=== PATIENT | female | born 1945 | race Caucasian/White ===

== ENCOUNTER 2018-02-07 19:52 | Observation (INO) | payer MEDICARE ==
[2018-02-07] MEDS ORDERED: NITROGLYCERIN OINT 1 INCH/GM PACKET TOPICAL STA (20:26)
[2018-02-07] MEDS ORDERED: ASPIRIN 81 MG PO STA (20:26)
--- NOTE | 2018-02-07 20:29 | ED ---
General Adult HPI - General Chief complaint: Chest Pain Stated complaint: Chest tightness Time Seen by Provider: 02/07/18 20:01 Source: patient, RN notes reviewed Mode of arrival: EMS Limitations: no limitations - History of Present Illness Initial comments: Patient is a pleasant 72-year-old female presenting to the emergency Department with complaints of chest tightness. Onset of symptoms was around 5:30 PM. Discomfort has improved and is now near resolved. No history of similar symptoms previously. Discomfort did radiate towards the left shoulder. Patient has been having some chronic problems with the right shoulder for weeks now. Patient did feel a little bit short of breath earlier. No nausea vomiting. No diaphoresis. - Related Data Home Medications Medication Instructions Recorded Confirmed Glucosamine-Chondr 500-400Mg 1 tab PO DAILY 07/03/14 02/07/18 Pravastatin Sodium [Pravachol] 40 mg PO HS 07/03/14 02/07/18 Gabapentin [Neurontin] 300 mg PO TID 02/07/18 02/07/18 Losartan Potassium 100 mg PO DAILY 02/07/18 02/07/18 Multivitamins, Thera [Multivitamin 1 tab PO DAILY 02/07/18 02/07/18 (formulary)] Oxybutynin Chloride [Ditropan] 5 mg PO BID 02/07/18 02/07/18 Ranitidine HCl [Zantac] 150 mg PO BID 02/07/18 02/07/18 Vitamin D3(Unknown) 1 tab PO DAILY 02/07/18 02/07/18 Allergies Allergy/AdvReac Type Severity Reaction Status Date / Time Iodinated Contrast- Oral and Allergy Anaphylaxis Verified 02/07/18 20:05 IV Dye [Iodinated Contrast Media - IV Dye] Sulfa (Sulfonamide Allergy Swelling Verified 02/07/18 20:05 Antibiotics) sulfamethoxazole Allergy Swelling Verified 02/07/18 20:05 [From Bactrim] trimethoprim [From Bactrim] Allergy Swelling Verified 02/07/18 20:05 prednisone AdvReac Itching Verified 02/07/18 20:05 Review of Systems ROS Statement: Those systems with pertinent positive or pertinent negative responses have been documented in the HPI. ROS Other: All systems not noted in ROS Statement are negative. Constitutional: Denies: fever Eyes: Denies: eye pain ENT: Denies: ear pain Respiratory: Denies: cough Cardiovascular: Reports: as per HPI, chest pain Endocrine: Denies: fatigue Gastrointestinal: Denies: abdominal pain Genitourinary: Denies: dysuria Musculoskeletal: Denies: back pain Skin: Denies: rash Neurological: Denies: weakness Past Medical History Past Medical History: GERD/Reflux, Hyperlipidemia, Hypertension, Osteoarthritis (OA) Additional Past Medical History / Comment(s): 07/07/14 Pt admitted to floor s/p total R hip. Other HX: Urinary stress Incontinence, osteoporosis History of Any Multi-Drug Resistant Organisms: None Reported Past Surgical History: Appendectomy, Section, Joint Replacement, Orthopedic Surgery, Tonsillectomy Additional Past Surgical History / Comment(s): 07/07/14 Total R hip arthroplasty. Bilateral cataracts, carpal tunnel release bilaterally Past Anesthesia/Blood Transfusion Reactions: No Reported Reaction, Postoperative Nausea & Vomiting (PONV) Past Psychological History: No Psychological Hx Reported Smoking Status: Never smoker Past Alcohol Use History: None Reported Past Drug Use History: None Reported - Past Family History Father Additional Family Medical History / Comment(s): Father had some sort of blood disorder. 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 OR 160. QRS 84. QT 356. QTc 402. Normal axis. Normal QRS. No acute ST change. Medical Decision Making - Medical Decision Making Patient reevaluated and resting comfortably in bed. Patient updated on results and plan. Case was discussed in detail with Dr. allen, who will admit for Dr. nguyễn - Lab Data Result diagrams: 02/07/18 20:17 02/07/18 20:17 Lab Results 02/07/18 02/07/18 02/07/18 Range/Units 20:17 20:17 20:17 WBC 7.2 (3.8-10.6) k/uL RBC 4.31 (3.80-5.40) m/uL Hgb 11.9 (11.4-16.0) gm/dL Hct 37.9 (34.0-46.0) % MCV 88.0 (80.0-100.0) fL MCH 27.7 (25.0-35.0) pg MCHC 31.5 (31.0-37.0) g/dL RDW 13.9 (11.5-15.5) % Plt Count 348 (150-450) k/uL Neutrophils % 63 % Lymphocytes % 27 % Monocytes % 5 % Eosinophils % 2 % Basophils % 0 % Neutrophils # 4.5 (1.3-7.7) k/uL Lymphocytes # 1.9 (1.0-4.8) k/uL Monocytes # 0.4 (0-1.0) k/uL Eosinophils # 0.2 (0-0.7) k/uL Basophils # 0.0 (0-0.2) k/uL PT (9.0-12.0) sec INR (<1.2) APTT (22.0-30.0) sec D-Dimer (<0.60) mg/L FEU Sodium 140 (137-145) mmol/L Potassium 4.2 (3.5-5.1) mmol/L Chloride 103 (98-107) mmol/L Carbon Dioxide 29 (22-30) mmol/L Anion Gap 8 mmol/L BUN 21 H (7-17) mg/dL Creatinine 0.63 (0.52-1.04) mg/dL Est GFR (CKD-EPI)AfAm >90 (>60 ml/min/1.73 sqM) Est GFR (CKD-EPI)NonAf 89 (>60 ml/min/1.73 sqM) Glucose 113 H (74-99) mg/dL Calcium 9.9 (8.4-10.2) mg/dL Magnesium 2.1 (1.6-2.3) mg/dL Total Bilirubin 0.4 (0.2-1.3) mg/dL AST 30 (14-36) U/L ALT 46 (9-52) U/L Alkaline Phosphatase 62 (38-126) U/L Total Creatine Kinase 29 L (30-135) U/L CK-MB (CK-2) 0.7 (0.0-2.4) ng/mL CK-MB (CK-2) Rel Index 2.4 Troponin I <0.012 (0.000-0.034) ng/mL Total Protein 6.6 (6.3-8.2) g/dL Albumin 4.0 (3.5-5.0) g/dL 02/07/18 Range/Units 20:17 WBC (3.8-10.6) k/uL RBC (3.80-5.40) m/uL Hgb (11.4-16.0) gm/dL Hct (34.0-46.0) % MCV (80.0-100.0) fL MCH (25.0-35.0) pg MCHC (31.0-37.0) g/dL RDW (11.5-15.5) % Plt Count (150-450) k/uL Neutrophils % % Lymphocytes % % Monocytes % % Eosinophils % % Basophils % % Neutrophils # (1.3-7.7) k/uL Lymphocytes # (1.0-4.8) k/uL Monocytes # (0-1.0) k/uL Eosinophils # (0-0.7) k/uL Basophils # (0-0.2) k/uL PT 9.4 (9.0-12.0) sec INR 0.9 (<1.2) APTT 19.1 L (22.0-30.0) sec D-Dimer 0.61 H (<0.60) mg/L FEU Sodium (137-145) mmol/L Potassium (3.5-5.1) mmol/L Chloride (98-107) mmol/L Carbon Dioxide (22-30) mmol/L Anion Gap mmol/L BUN (7-17) mg/dL Creatinine (0.52-1.04) mg/dL Est GFR (CKD-EPI)AfAm (>60 ml/min/1.73 sqM) Est GFR (CKD-EPI)NonAf (>60 ml/min/1.73 sqM) Glucose (74-99) mg/dL Calcium (8.4-10.2) mg/dL Magnesium (1.6-2.3) mg/dL Total Bilirubin (0.2-1.3) mg/dL AST (14-36) U/L ALT (9-52) U/L Alkaline Phosphatase (38-126) U/L Total Creatine Kinase (30-135) U/L CK-MB (CK-2) (0.0-2.4) ng/mL CK-MB (CK-2) Rel Index Troponin I (0.000-0.034) ng/mL Total Protein (6.3-8.2) g/dL Albumin (3.5-5.0) g/dL - Radiology Data Radiology results: report reviewed (Computed tomography scan of the chest negative for pulmonary embolism.), image reviewed (Two-view chest x-ray shows no acute process.) Disposition Clinical Impression: Chest pain Disposition: ADMITTED IP TO THIS HOSP Is patient prescribed a controlled substance at d/c from ED?: No Referrals: Yovani Leyva MD [Primary Care Provider] - 1-2 days Decision Time: 23:39
[2018-02-07 20:39] LABS: Basophils % (A) 0 %; Eosinophils # (A) 0.2 k/uL (0-0.7); Eosinophils % (A) 2 %; HCT 37.9 % (34.0-46.0); HGB 11.9 gm/dL (11.4-16.0); Lymphocytes # (A) 1.9 k/uL (1.0-4.8); Lymphocytes % (A) 27 %; MCH 27.7 pg (25.0-35.0); MCHC 31.5 g/dL (31.0-37.0); Mean Platelet Volume 6.8; Monocytes # (A) 0.4 k/uL (0-1.0); Monocytes % (A) 5 %; Neutrophils # (A) 4.5 k/uL (1.3-7.7); Neutrophils % (A) 63 %; Platelet Count 348 k/uL (150-450); RBC 4.31 m/uL (3.80-5.40); RDW 13.9 % (11.5-15.5); WBC 7.2 k/uL (3.8-10.6)
--- NOTE | 2018-02-07 20:53 | XR ---
EXAMINATION TYPE: XR chest 2V DATE OF EXAM: 02/07/2018 COMPARISON: 07/08/2014 HISTORY: Chest pressure TECHNIQUE: Frontal and lateral views of the chest are obtained. FINDINGS: Heart is enlarged. There is no heart failure. Lungs are clear of consolidation. There is n o pleural effusion. There are chest leads. There is spurring in the thoracic spine. IMPRESSION: No active cardiopulmonary disease. Heart appears increased slightly compared to old exam .
[2018-02-07 20:58] LABS: ALT 46 U/L (9-52); AST 30 U/L (14-36); Alkaline Phosphatase 62 U/L (38-126); Anion Gap 8 mmol/L; Blood Urea Nitrogen 21 mg/dL (7-17); Calcium 9.9 mg/dL (8.4-10.2); Carbon Dioxide 29 mmol/L (22-30); Chloride 103 mmol/L (98-107); Glucose 113 mg/dL (74-99); Magnesium 2.1 mg/dL (1.6-2.3); Potassium 4.2 mmol/L (3.5-5.1); Sodium 140 mmol/L (137-145); Total Bilirubin 0.4 mg/dL (0.2-1.3); Total Protein 6.6 g/dL (6.3-8.2)
[2018-02-07 21:00] LABS: INR 0.9 (<1.2); Prothrombin Time 9.4 sec (9.0-12.0)
[2018-02-07 21:11] LABS: Creatine Kinase 29 U/L (30-135)
[2018-02-07 21:15] LABS: D-Dimer 0.61 mg/L FEU (<0.60); Partial Thromboplastin Time 19.1 sec (22.0-30.0)
[2018-02-07] MEDS ORDERED: diphenhydrAMINE 50 MG/ML 1 ML VIAL IVP STA (21:18)
[2018-02-07] MEDS ORDERED: FAMOTIDINE 20 MG/2 ML VIAL IV STA (21:18)
[2018-02-07] MEDS ORDERED: methylPREDNISolone SOD SUCCI 125 MG/2 ML VIAL IV STA (21:18)
[2018-02-07 21:24] LABS: Creatine Kinase MB 0.7 ng/mL (0.0-2.4); Troponin I <0.012 ng/mL (0.000-0.034)
--- NOTE | 2018-02-07 22:30 | CT ---
EXAMINATION TYPE: CT angio chest DATE OF EXAM: 02/07/2018 10:21 PM COMPARISON: None HISTORY: Chest pain and shortness of breath. CT DLP: 461.3 mGycm Automated exposure control for dose reduction was used. CONTRAST: CTA scan of the thorax is performed with IV Contrast, patient injected with 76ml mL of Isovue 370, pu lmonary embolism protocol. There are 3-D post processed images.. FINDINGS: The lungs are clear of consolidation. There is no evidence of a pulmonary mass. There is no pleural e ffusion. There is no pericardial effusion. There are no hilar masses. There is no mediastinal adenopathy. Thoracic aorta appears normal. There i s normal contrast opacification of the pulmonary arteries. I see no filling defect. There is no evide nce of aortic aneurysm or dissection. There is some spurring in the thoracic spine. I see no bony destructive process. IMPRESSION: NEGATIVE CT ANGIOGRAM OF THE CHEST. NO EVIDENCE OF PULMONARY EMBOLISM.
[2018-02-07] MEDS ORDERED: NITROGLYCERIN SL TABS 0.4 MG TAB SUBLINGUAL PRN (23:39)
[2018-02-08 01:09] VITALS: BMI 38.2
[2018-02-08] MEDS: NITROGLYCERIN OINT 1 INCH/GM PACKET TOPICAL SCH ×4 (01:25→15:39)
[2018-02-08 02:39] LABS: Creatine Kinase 26 U/L (30-135)
[2018-02-08 02:40] LABS: Cholesterol 197 mg/dL (<200); HDL Cholesterol 100 mg/dL (40-60); LDL Cholesterol,Calculated 86 mg/dL (0-99); Triglycerides 54 mg/dL (<150)
[2018-02-08 02:51] LABS: Creatine Kinase MB 0.5 ng/mL (0.0-2.4); Troponin I <0.012 ng/mL (0.000-0.034)
[2018-02-08 05:53] LABS: Glucose,Whole Blood 187 mg/dL (75-99)
[2018-02-08 08:29] VITALS: RESP 16
[2018-02-08] MEDS ORDERED: ASPIRIN 325 MG TAB PO SCH (09:00)
[2018-02-08 09:20] LABS: Creatine Kinase 23 U/L (30-135)
[2018-02-08 09:32] LABS: Creatine Kinase MB 0.6 ng/mL (0.0-2.4); Troponin I <0.012 ng/mL (0.000-0.034)
[2018-02-08] MEDS ORDERED: LOSARTAN 50 MG TAB PO SCH (11:30)
[2018-02-08] MEDS ORDERED: OXYBUTYNIN CHLORIDE 5 MG TAB PO SCH (11:30)
[2018-02-08] MEDS ORDERED: FAMOTIDINE 20 MG TAB PO SCH (11:30)
[2018-02-08] MEDS ORDERED: METOPROLOL TARTRATE 25 MG TAB PO SCH (11:45)
[2018-02-08 11:50] VITALS: TEMP 97.7
[2018-02-08] MEDS: GABAPENTIN 300 MG CAP PO SCH ×2 (11:51→15:39)
[2018-02-08] MEDS ORDERED: MULTIVITAMINS, THERA 1 EACH TAB PO SCH (12:00)
[2018-02-08] MEDS ORDERED: CHOLECALCIFEROL 1,000 UNIT TAB PO SCH (12:00)
--- NOTE | 2018-02-08 14:48 | CONS ---
CONSULTATION This is a 72-year-old lady with a known history of hypertension and hypercholesterolemia. She has been admitted to the hospital with an episode of right shoulder and arm pain followed by a left shoulder and arm pain and then had some midsternal chest discomfort. The quality of her chest pain and more importantly shoulder pain seems musculoskeletal. She was using a massager and she used the massager on her right shoulder. This was a manual massager with 3 wooden areas and she applied this on to her forearm and shoulder and she has developed a bruise over the forearm. Then she had pain in the shoulder and then had a brief episode of chest discomfort. The quality of the pain is atypical. Patient is reluctant to have any further testing performed. Her troponins are normal. She is resting comfortably without symptoms. Her blood pressure control is optimal. She sees Dr. Leyva and her blood pressure control has been good. At the time of my evaluation, she is asymptomatic and wishes to go home. PAST MEDICAL HISTORY: 1. Hypertension. 2. Hyperlipidemia. 3. Obesity. 4. A negative stress test more than 2-1/2 years ago. 5. No evidence of any documented prior myocardial infarction or CVA. MEDICATIONS: At home include Zantac, Pravachol 40 mg daily, Ditropan, losartan 100 mg daily, gabapentin. ALLERGIES: She is ALLERGIC TO IODINE DYE, SULFA AND BACTRIM. The patient had a CT angiography performed yesterday and this was normal without any evidence of pulmonary embolism. Troponin levels are all unremarkable. EKG revealed a sinus mechanism without any significant changes. There was poor R-wave progression noted. EXAMINATION: Blood pressure is 128/70, pulse rate is about 80 per minute and regular. HEENT: Unremarkable. Fundus was not examined by me. Neck is supple. There is no JVD. I do not hear a carotid bruit. Heart exam reveals S1, S2 heard normally without any rub, murmur or gallop. Lungs are clear. Abdomen is soft, nontender. Lower extremities reveal normal pulses. No edema. Central nervous system is normal. EKG revealed sinus mechanism, no acute changes. IMPRESSION: 1. Atypical shoulder and chest discomfort. 2. Hypertension. 3. Hyperlipidemia. 4. Obesity. RECOMMENDATION: I am recommending that the patient can be discharged and should have a stress test as an outpatient. Advised to be on Lopressor 25 mg daily, decrease losartan to 50 mg daily and continue her Pravachol. She can be discharged and will have a stress test as an outpatient. Thank you very much for the consult. COSME / TEODORO: [id number] /
[2018-02-08 15:50] VITALS: BP 125/64; PULSE 68
--- NOTE | 2018-02-08 16:18 | HP ---
HISTORY AND PHYSICAL DATE OF ADMISSION: 02/07/18. DATE OF SERVICE: 02/08/18. PRESENTING COMPLAINT: Chest tightness. HISTORY OF PRESENTING COMPLAINT: This is a very pleasant 72-year-old patient from [facility], follows with Dr. Leyva. Chronic stable medical conditions include GERD, hypertension, hyperlipidemia, osteoarthritis, urine incontinence. The patient has been having right shoulder pain for about a week when she moves her arm. Yesterday developed chest tightness with pain going to her left shoulder. Also became short of breath, dizzy, smoking break out in a sweat. Symptoms lasted for good over half an hour. No obvious relation to activity. Hence patient decided to present to the ER. The patient admitted for unstable angina. Given nitroglycerin paste and aspirin in the ER and admitted for further workup. Denies any prior cardiac history. The patient did have a stress test 2-1/2 years ago that was negative. Patient otherwise is rather active. REVIEW OF SYSTEMS: CONSTITUTIONAL: None. HEENT: None. RESPIRATORY: As above. CARDIOVASCULAR: As above. GASTROINTESTINAL: Heartburn. GENITOURINARY: Urine incontinence. MUSCULOSKELETAL: Pain in all the joints. DERMATOLOGICAL, HEMATOLOGIC, LYMPHATICS: None. PSYCHIATRY: None. NEUROLOGICAL: None. PAST MEDICAL HISTORY: GERD, hypertension, hyperlipidemia, osteoarthritis, urine incontinence. PAST SURGICAL HISTORY: Appendectomy , joint replacement, tonsillectomy, right total hip arthroplasty, bilateral cataract, carpal tunnel release bilaterally. SOCIAL HISTORY: Patient lives at home with daughter and son-in-law. 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 Uses a cane to get about. Does not smoke or drink alcohol. FAMILY HISTORY: Family history of hypertension, osteoarthritis. Father had some blood disorder. HOME MEDICATIONS: 1. Vitamin D3 one tablet p.o. daily. 2. Zantac 150 mg p.o. b.i.d. 3. Pravachol 40 mg q.h.s. 4. Ditropan 5 mg p.o. b.i.d. 5. Multivitamin 1 tablet p.o. daily. 6. Losartan 100 mg p.o. daily. 7. Glucosamine chondroitin 1 tablet p.o. daily. 8. Neurontin 300 mg p.o. t.i.d. ALLERGIES: IV contrast dye, Bactrim, prednisone. PHYSICAL EXAMINATION: Vital signs on presentation: Temp 98.1, pulse 75, respirations 18, blood pressure 138/63, pulse ox 98 percent on 2 L. GENERAL APPEARANCE: Well built, BMI 38, sitting up, comfortable. EYES: Pupils equal. Conjunctivae normal. HEENT: External appearance of nose and ears normal. Oral cavity normal. NECK: JVD not raised. Mass not palpable. RESPIRATORY: Effort normal. Lungs are clear. CARDIOVASCULAR: 1st and 2nd sounds, no edema. ABDOMEN: Soft, nontender. Liver and spleen not palpable. LYMPHATIC: No lymph node palpable in neck or axillae. PSYCHIATRY: Alert and oriented x3. Mood and affect normal. NEUROLOGICAL: Pupils equal. Cranial nerves grossly intact. Power and sensation grossly intact. INVESTIGATIONS: White count 7.2, hemoglobin 11.9, potassium 4.2, BUN 21, creatinine 0.63. Troponin x3 negative. LDL 86. Chest x-ray film interpreted by me shows mild cardiomegaly, questionable prominent venous veins. Chest CT negative for PE. EKG tracing interpreted by me shows poor R-wave progression. ASSESSMENT: 1. Possible unstable angina. The patient's cardiac risk factors include hypertension, hyperlipidemia, obesity. 2. Gastroesophageal reflux disease. 3. Essential hypertension. 4. Hyperlipidemia. 5. Primary osteoarthritis of multiple joints. 6. Chronic kidney stress incontinence. 7. Obesity; BMI 38. PLAN: Patient is put on aspirin, nitrates. Serial cardiac enzymes are ordered from the ER. Admitted to the cardiology floor. Home medications reviewed. Cardiology was consulted. MMODL / IJN: [id number] /
[2018-02-08 19:14] LABS: Hemoglobin A1C 6.8 % (4.0-6.0)
[2018-02-08] MEDS ORDERED: PRAVASTATIN SODIUM 40 MG TAB PO SCH (21:00)
[2018-02-09] MEDS ORDERED: LOSARTAN 50 MG TAB PO SCH (09:00)
--- NOTE | 2018-02-09 11:28 | ECHOF ---
Referral Reason:chest pain MEASUREMENTS -------- HEIGHT: 152.4 cm WEIGHT: 88.0 kg BP: 135/62 RVIDd: 2.5 cm (< 3.3) IVSd: 1.2 cm (0.6 - 1.1) LVIDd: 4.5 cm (3.9 - 5.3) LVPWd: 1.1 cm (0.6 - 1.1) IVSs: 1.7 cm LVIDs: 2.6 cm LVPWs: 1.7 cm LAESV Index (A-L): 24.45 ml/m Ao Diam: 3.1 cm (2.0 - 3.7) AV Cusp: 1.5 cm (1.5 - 2.6) LA Diam: 2.6 cm (2.7 - 3.8) MV E Prasanth: 0.68 m/s MV DecT: 282 ms MV A Prasanth: 0.95 m/s MV E/A Ratio: 0.72 RAP: 5.00 mmHg RVSP: 26.07 mmHg FINDINGS -------- Sinus rhythm. This was a technically adequate study. The left ventricular size is normal. There is borderline concentric left ventricular hypertrophy. Overall left ventricular systolic function is normal with, an EF between 55 - 60 %. The right ventricle is normal in size and function. Normal LA size by volume 22+/-6 ml/m2. The right atrium is normal in size. There is mild aortic valve sclerosis. Trace amount of aortic regurgitation. There is no evidence of aortic stenosis. The mitral valve leaflets are mildly thickened. There is trace to mild mitral regurgitation. Mild tricuspid regurgitation present. Right ventricular systolic pressure is normal at < 35 mmHg. There is no evidence of pulmonary hypertension. Trace/mild (physiologic) pulmonic regurgitation. The aortic root size is normal. The hepatic veins were not well visualized. There is no pericardial effusion. CONCLUSIONS -------- 1. Sinus rhythm. 2. This was a technically adequate study. 3. The left ventricular size is normal. 4. There is borderline concentric left ventricular hypertrophy. 5. Overall left ventricular systolic function is normal with, an EF between 55 - 60 %. 6. Normal LA size by volume 22+/-6 ml/m2. 7. There is mild aortic valve sclerosis. 8. Trace amount of aortic regurgitation. 9. The mitral valve leaflets are mildly thickened. 10. There is trace to mild mitral regurgitation. 11. Mild tricuspid regurgitation present. 12. Right ventricular systolic pressure is normal at < 35 mmHg. 13. There is no evidence of pulmonary hypertension. 14. Trace/mild (physiologic) pulmonic regurgitation. 15. The aortic root size is normal. 16. The hepatic veins were not well visualized. 17. There is no pericardial effusion. CHRONIC CARE NURSE: Oliverio Chavarria RDCS
== END 2018-02-08 16:47 | disposition home or self-care (01) ==
LOC: EC 19:52 → 6SEL 23:39
PROVIDERS: ADMIT Hospitalist; ATTEND Hospitalist
DX: R07.89 Other chest pain (principal); E66.9 Obesity, unspecified; Z68.38 Body mass index [BMI] 38.0-38.9, adult; I10 Essential (primary) hypertension; E78.5 Hyperlipidemia, unspecified; M25.511 Pain in right shoulder; M25.512 Pain in left shoulder; E78.00 Pure hypercholesterolemia, unspecified; K21.9 Gastro-esophageal reflux disease without esophagitis; M15.9 Polyosteoarthritis, unspecified; M81.0 Age-related osteoporosis without current pathological fracture; N39.3 Stress incontinence (female) (male); Z96.641 Presence of right artificial hip joint; Z82.49 Family history of ischemic heart disease and other diseases of the circulatory system; Z88.2 Allergy status to sulfonamides; Z91.041 Radiographic dye allergy status; Z79.899 Other long term (current) drug therapy; Z98.42 Cataract extraction status, left eye; Z98.41 Cataract extraction status, right eye; Z90.49 Acquired absence of other specified parts of digestive tract
CPT/HCPCS: 96374; 96375; 99285; 36415; 93005; 93306; 85379; 80061; 80053; 82550 ×2; 82553 ×2; 83735; 84484 ×2; 85025; 85610; 85730; 83036; 71046; 71275; G0378 ×2; J1200; J2930; Q9967

== ENCOUNTER → 2018-05-11 | Outpatient (CLI) | payer MEDICARE ==
[2018-05-11 09:59] LABS: Basophils % (A) 1 %; Eosinophils # (A) 0.2 k/uL (0-0.7); Eosinophils % (A) 3 %; HGB 12.8 gm/dL (11.4-16.0); Hypochromasia Slight; Lymphocytes # (A) 1.3 k/uL (1.0-4.8); Lymphocytes % (A) 27 %; MCH 27.6 pg (25.0-35.0); MCHC 31.3 g/dL (31.0-37.0); MCV 88.1 fL (80.0-100.0); Mean Platelet Volume 6.9; Monocytes # (A) 0.3 k/uL (0-1.0); Monocytes % (A) 7 %; Neutrophils # (A) 2.9 k/uL (1.3-7.7); Neutrophils % (A) 60 %; Platelet Count 321 k/uL (150-450); RBC 4.66 m/uL (3.80-5.40); RDW 13.2 % (11.5-15.5); WBC 4.8 k/uL (3.8-10.6)
[2018-05-11 10:14] LABS: ALT 33 U/L (9-52); AST 30 U/L (14-36); Albumin 4.3 g/dL (3.5-5.0); Alkaline Phosphatase 51 U/L (38-126); Anion Gap 7 mmol/L; Blood Urea Nitrogen 16 mg/dL (7-17); Calcium 10.6 mg/dL (8.4-10.2); Carbon Dioxide 32 mmol/L (22-30); Chloride 104 mmol/L (98-107); Glucose 117 mg/dL (74-99); Potassium 4.9 mmol/L (3.5-5.1); Sodium 143 mmol/L (137-145); Total Bilirubin 0.6 mg/dL (0.2-1.3); Total Protein 7.2 g/dL (6.3-8.2)
[2018-05-11 10:16] LABS: INR 0.9 (<1.2); Partial Thromboplastin Time 22.5 sec (22.0-30.0); Prothrombin Time 9.7 sec (9.0-12.0)
[2018-05-11 10:25] LABS: Appearance,Urine Clear (Clear); Bilirubin,Urine Negative (Negative); Blood,Urine Trace (Negative); Color,Urine Yellow; Glucose,Urine (UA) Negative (Negative); Hyaline Casts,Urine 1 /lpf (0-2); Ketones,Urine Negative (Negative); Leukocyte Esterase,Urine Moderate (Negative); Mucus,Urine Rare /hpf; Nitrite,Urine Negative (Negative); Protein,Urine Negative (Negative); RBC,Urine 4 /hpf (0-5); Specific Gravity,Urine 1.015 (1.001-1.035); Squamous Epithelial Cell,Urine 3 /hpf (0-4); Urobilinogen,Urine <2.0 mg/dL (<2.0); WBC,Urine 7 /hpf (0-5)
== END ==
LOC: LABPAT 08:50
PROVIDERS: ATTEND Orthopaedic Surgery
DX: Z01.812 Encounter for preprocedural laboratory examination (principal); Z79.01 Long term (current) use of anticoagulants
CPT/HCPCS: 36415; 80053; 81001; 85025; 85610; 85730; 87070

== ENCOUNTER 2018-05-21 06:07 | Inpatient (IN) | payer MEDICARE ==
[2018-05-16 16:13] VITALS: BMI 38.0
[~2018-05-21 06:07] MED LIST: LACTATED RINGERS 1,000 ML IV SCH; MIDAZOLAM (PF) 2 MG/2 ML VIAL IV PRN; ONDANSETRON 4 MG/2 ML VIAL IVP ONE; TRANEXAMIC ACID 1,000 MG in SODIUM CHLORIDE 0.9% 50 ML IVPB ONE; ceFAZolin IN SWFI 2 GM/20 ML SYRINGE IVP ONE; fentaNYL (PF) 50 MCG/ML 2 ML AMP IV PRN
[2018-05-21] MEDS ORDERED: LIDOCAINE 1% 20 ML VIAL (10MG/ML) FOR IV START INTRADERMA ONE (06:37)
[2018-05-21] MEDS ORDERED: DEXAMETHASONE SOD PHOSPHATE 10 MG/ML 1 ML VIAL IV ONE (06:53)
[2018-05-21] MEDS: ONDANSETRON 4 MG/2 ML VIAL IVP ONE ×2 (06:53→12:50)
[2018-05-21] MEDS: ACETAMINOPHEN TAB 500 MG TAB PO ONE ×2 (07:02→12:48)
[2018-05-21] MEDS ORDERED: ROPIVACAINE 246.25 MG, EPINEPHrine 0.5 MG, KETOROLAC 30 MG, cloNIDine HCL/PF 80 MCG, WA... MISCELLANE ONE ×5 (07:57)
[2018-05-21] MEDS ORDERED: ePHEDrine SULFATE/0.9% NACL/PF 50 MG/5 ML SYRINGE IV ONE (08:12)
[2018-05-21] MEDS ORDERED: MIDAZOLAM 2 MG/2 ML VIAL ONE (08:12)
[2018-05-21] MEDS ORDERED: ceFAZolin 3,000 MG in SODIUM CHLORIDE 0.9% IRRIGATIO 3,000 ML IRRIGATION ONE (08:58)
[2018-05-21] MEDS ORDERED: LACTATED RINGERS 1,000 ML IV ONE (09:41)
[2018-05-21] MEDS ORDERED: hydrOXYzine PAMOATE 25 MG CAP PO PRN (10:32)
[2018-05-21] MEDS ORDERED: BISACODYL 10 MG SUPP RECTAL PRN (10:32)
[2018-05-21] MEDS ORDERED: MAGNESIUM HYDROXIDE 2,400 MG/10 ML CUP PO PRN (10:32)
[2018-05-21] MEDS ORDERED: NA PHOS,M-B/NA PHOS,DI-BA 133 ML ENEMA RECTAL PRN (10:32)
[2018-05-21] MEDS ORDERED: ONDANSETRON 4 MG/2 ML VIAL IVP PRN (10:32)
[2018-05-21] MEDS ORDERED: NALOXONE 0.4 MG/ML 1 ML VIAL IV PRN (10:32)
[2018-05-21] MEDS ORDERED: HYDROmorphone 1 MG/ML 1 ML SYRINGE IVP PRN ×3 (10:32)
[2018-05-21] MEDS ORDERED: HYDROcodone/APAP 5-325MG 1 EACH TAB PO PRN ×2 (10:32)
--- NOTE | 2018-05-21 11:08 | XR ---
EXAMINATION TYPE: XR knee limited LT DATE OF EXAM: 05/21/2018 COMPARISON: NONE TECHNIQUE: Two views submitted HISTORY: Post op FINDINGS: There is a prosthetic knee in near anatomic alignment. There is soft tissue edema and emphysema. IMPRESSION: 1. Postoperative change. Appears in near-anatomic alignment
--- NOTE | 2018-05-21 12:06 | P.OP ---
Date of Procedure: 05/21/18 Procedure(s) Performed: PREOPERATIVE DIAGNOSIS: Left knee severe osteoarthritis with genu varum POSTOPERATIVE DIAGNOSIS: Left knee severe osteoarthritis with genu varum OPERATION: Left knee cemented total replacement arthroplasty. ANESTHESIA: Spinal ESTIMATED BLOOD LOSS: 50 ml. HOME HEALTH NURSE: April Pate PA-C (assistance with: patient positioning, retraction, exposure, hemostasis, leg positioning, implantation, irrigation, closure, dressing) COMPLICATIONS: None apparent. COMPONENTS IMPLANTED: Persona system from [employer] INDICATIONS: Mrs. Aranda is a 72-year-old female with a history of left knee osteoarthritis. Conservative treatment has been tried and has been unsuccessful in controlling symptoms adequately. The operation of knee replacement has been discussed at length in the office, as well as potential risks and complications. These are inclusive of, but not limited to: bleeding, infection, scarring, discomfort, blood vessel and nerve damage, need for further surgery, failure to relieve symptoms, persistence, recurrence, or worsening of problems, loosening, dislocation, wear, blood clot, pulmonary embolism, , gait dysfunction, stiffness, and other risks as discussed in the office. The patient elects to proceed and the consent form has been signed. PROCEDURE: The patient was taken to the operating room and positioned on the operating room table in the supine position. Anesthesia was initiated. Care was taken to make sure that all pressure points were adequately padded. The operative lower extremity was prepped and draped in the usual aseptic fashion using ChloraPrep. Ioban drape was used for the case and the patient received intravenous antibiotics within one hour of the incision. A pneumotourniquet and leg lópez were used for the case. The limb was exsanguinated with an Esmarch bandage and the tourniquet was inflated to 350 mmHg. Time-out was called confirming the patient's identity, side, procedure and administration of antibiotics and tranexamic acid, 1 g IV. The incision was then created midline directly over the knee, carried down through skin and into the subcutaneous tissues and down to fascia. Full thickness subcutaneous medial flap was developed. Medial parapatellar arthrotomy was performed and the interior of the knee was inspected. There was end-stage osteoarthritis of the knee with a mild to moderate genu varum type deformity. The fat pad was excised and proximal medial release on the tibia was completed using meticulous dissection and a curved osteotome. The anterior cruciate ligament was taken down. Note was made of significant attrition of the anterior and significant degenerative appearance of the posterior cruciate ligaments. The exposure was excellent. The knee was flexed 90 degrees and the patella was everted. A spot was chosen on the femur approximately 1 cm anterior to the posterior cruciate ligament insertion and an intramedullary hole was created within the femur. The intramedullary guide was then set to 5 degrees of valgus. The distal cutting block was attached and pinned into position. An appropriate amount of distal femoral resection was set. The oscillating saw was then used to make the distal femoral cut. This cut was confirmed to be flat with the flat end of an osteotome. The retractors were placed around the tibia and the tibial surface was addressed. The angle and depth of resection was adjusted using an extramedullary cutting guide. The guide had a built-in 3 degree posterior slope cut. Once the cutting guide was adjusted appropriately and in line with the axis of the tibia and confirmed to be in good position in relation to the second metatarsal and transmalleolar axis, the tibial cut was then created with protection of the posterior neurovascular structures and the collateral ligaments. The tibial cut surface was removed and sized. Femoral sizing was then accomplished using anterior referencing. Care was taken to analyze the posterior condyles for signs of deficiency or severe wear, and adjustments to the guide were made, as appropriate. 3 degree external rotation pins were placed. The cutting jig for the femur was applied to these pins. The planned cuts were further analyzed prior to performing them with the oscillating saw. No femoral notching was produced. Bone fragments were removed and the cut surfaces were finished, as necessary, with a reciprocating saw. Spacer block technique was then used to confirm that the flexion and extension gaps were equal. Soft tissue releases and adjustment of the tibial and/or femoral cuts were made, as necessary, until the gaps were equal. This included release of the posterior cruciate ligament, which was tight in this patient. The femur was then further finished for a posterior cruciate ligament substituting component. Patellar resurfacing was performed using a reamer. The size of the required patellar component was estimated and the patellar surface was then reamed down to a residual thickness which would recreate the [place] thickness with the component. The exact placement of the patellar component was adjusted for position based on preoperative x-rays and intraoperative findings. Prior to placing trial components, anesthetic solution consisting of ropivicaine with epinephrine, ketorolac, and clonidine was injected carefully and methodically in a grid pattern using aspiration technique into the soft tissue around the knee circumferentially, starting with the deeper tissues first and progressing to fascia, and then finally the skin/subcutaneous tissue. Particular care was taken when injecting the posterior capsule. The trial components were inserted. The tibial tray was allowed to self center and the patella was noted to track very well. The position of the tibial component was marked and the tibia was then finished for a stemmed tibial component. Cement was mixed on the back table and applied to the final components. Trial components were removed and the cut surfaces of the bone were pulse lavaged thoroughly and dried. Cement was then applied to the tibial surface and pressurized into the surface using finger pressurization technique. The tibial component was then applied and excess cement was removed after it was impacted securely and noted to be flush with the cut surface. In similar fashion, the cement was applied to the cut femoral surface, pressurized in using finger pressurization and the component was impacted into place. Excess cement was removed. The polyethylene spacer was then implanted and locked into position. The patellar component was then applied in similar technique and a patellar clamp was used to hold the patella in place as the cement hardened. Once the cement had fully hardened, the knee was reinspected. Any other cement extrusion was removed and final kinematic testing showed range of motion from 0 to 130 degrees with excellent stability, both medially and laterally and appropriate alignment of the leg. Patellar tracking was excellent. The knee was then thoroughly pulse lavaged with normal saline. The tourniquet was deflated and hemostasis was obtained with electrocautery and IV tranexamic acid, 1 g given prior to inflation of the tourniquet and another gram given at the time of closure. Closure was with #2 Ethibond in the fascia and supplemented with #2 Quill, 2-0 Vicryl suture was used for the subcutaneous tissues and 3-0 Quill for the skin. Dermabond/Steri-Strips were then applied. A lightly compressive dressing was applied using Webril and an [place] wrap. The patient was then transferred to stretcher and taken to the recovery room in stable condition. Sponge and needle counts were correct.
[2018-05-21] MEDS ORDERED: HYDROmorphone 0.5 MG/0.5 ML SYRINGE IVP PRN ×2 (12:37)
[2018-05-21] MEDS ORDERED: NITROGLYCERIN SL TABS 0.4 MG TAB SUBLINGUAL PRN (15:00)
[2018-05-21] MEDS: ceFAZolin IN SWFI 2 GM/20 ML SYRINGE IVP SCH (16:31)
[2018-05-21] MEDS: GABAPENTIN 300 MG CAP PO SCH ×2 (16:31→22:59)
[2018-05-21] MEDS: LACTATED RINGERS 1,000 ML IV SCH ×2 (16:32→18:32)
[2018-05-21] MEDS: FAMOTIDINE 20 MG TAB PO SCH (22:59)
[2018-05-21] MEDS: PRAVASTATIN SODIUM 40 MG TAB PO SCH (22:59)
[2018-05-21] MEDS: SENNOSIDES-DOCUSATE SODIUM 1 EACH TAB PO SCH (22:59)
[2018-05-21] MEDS: LOSARTAN 50 MG TAB PO SCH (22:59)
--- NOTE | 2018-05-21 23:25 | CONS ---
CONSULTATION REASON FOR CONSULTATION: Medical management. REQUESTED BY: Dr. Cintron. CONSULTATION: This is a 72-year-old patient of Dr. Leyva from [place] whose chronic stable medical conditions include GERD, hypertension, hyperlipidemia, osteoarthritis, urine incontinence. The patient was here in January of this year, was then seen by Cardiology, Dr. Caitlin Rodriguez. It was felt that the patient's complaints were all musculoskeletal. The patient has now undergone left total knee arthroplasty. The pain is controlled. No nausea, vomiting. No fever. No chills. Working with therapy. Patient's son-in-law is at the bedside. REVIEW OF SYSTEMS: CONSTITUTIONAL: None. HEENT: None. RESPIRATORY: None. GASTROINTESTINAL: Occasional heartburn. GENITOURINARY: Urine incontinence. MUSCULOSKELETAL: Pain in the joints. DERMATOLOGICAL, HEMATOLOGIC, LYMPHATIC: None. PSYCHIATRY: None. NEUROLOGIC: None. PAST MEDICAL HISTORY: GERD, hypertension, hyperlipidemia, osteoarthritis, urine incontinence. PAST SURGICAL HISTORY: Appendectomy , joint replacement, tonsillectomy, right total hip arthroplasty, bilateral cataract, carpal tunnel release bilaterally. SOCIAL HISTORY: The patient lives with daughter and son-in-law. Does use a cane to get about. Does not smoke or drink alcohol. FAMILY HISTORY: Hypertension, osteoarthritis, father had lung disorder. HOME MEDICATIONS: 1. Zantac 150 mg p.o. b.i.d. 2. Pravachol 40 mg at bedtime. 3. Nitrostat 0.4 sublingual every 5 p.r.n. 4. Multivitamin 1 tablet p.o. daily. 5. Magnesium 400 mg p.o. daily. 6. Losartan 50 mg at bedtime. 7. Glucosamine chondroitin 1 tablet p.o. daily. 8. Neurontin 300 mg p.o. t.i.d. 9. Vitamin D3, 1000 units p.o. daily. 10.Aspirin 81 mg p.o. daily. 11.Senokot S 1 tablet p.o. b.i.d. 12.Xarelto 10 mg p.o. daily. 13.[place] 5, 1 to 2 tablets every 4 to 6 hours p.r.n. 14.Aspirin 81 mg a day. ALLERGIES: IV CONTRAST DYE, SULFUR, BACTRIM, PREDNISONE. PHYSICAL EXAMINATION: Temperature 98.1 pulse 94, respirations 16, blood pressure 134/56, pulse ox 95% on room air. GENERAL APPEARANCE: Well built. BMI 38.1. Sitting up comfortable. EYES: Pupils equal. Conjunctivae normal. HEENT: External nose and ears normal. Oral cavity normal. NECK: JVD not raised. Mass not palpable. Respiratory effort normal. LUNGS: Clear. CARDIOVASCULAR: 1st and 2nd sounds normal. No edema. ABDOMEN: Soft, nontender. Liver and spleen not palpable. LYMPHATIC: No lymph node palpable in neck, axillae or groin. PSYCHIATRY: Alert and oriented x3. Mood and affect normal. NEUROLOGIC: Pupils equal. Cranial nerves intact. Power and sensation grossly intact. MUSCULOSKELETAL: Dressing over the left knee. Evidence of OA, especially in the hands. INVESTIGATIONS: Blood work from 05/11/2018 shows a white count of 4.8, hemoglobin 12.8, potassium 4.9. BUN and creatinine normal. ASSESSMENT: 1. Left total knee arthroplasty. 2. Gastroesophageal reflux disease. 3. Essential hypertension. 4. Hyperlipidemia. 5. Primary osteoarthritis multiple joints. 6. Chronic urinary stress incontinence. 7. Obesity; BMI 38.1. PLAN: Home medications are resumed. Pain control is in place. The patient is on Xarelto for DVT prophylaxis. Care was discussed with the patient and son-in-law. Questions were answered. The patient follow up with Dr. Leyva after discharge from the hospital. Thank you, Dr. Cintron. COSME / TEODORO: [id number] /
[2018-05-21] MEDS: traMADol 50 MG TAB PO PRN (23:54)
[2018-05-22] MEDS: ceFAZolin IN SWFI 2 GM/20 ML SYRINGE IVP SCH (01:09)
[2018-05-22] MEDS: HYDROmorphone 0.5 MG/0.5 ML SYRINGE IVP PRN ×3 (01:15→22:12)
[2018-05-22] MEDS: LACTATED RINGERS 1,000 ML IV SCH ×2 (07:09→18:55)
[2018-05-22] MEDS: traMADol 50 MG TAB PO PRN ×2 (07:13→19:04)
[2018-05-22] MEDS: FAMOTIDINE 20 MG TAB PO SCH ×2 (08:22→20:26)
[2018-05-22] MEDS: MELOXICAM 7.5 MG TAB PO SCH (08:23)
[2018-05-22] MEDS: RIVAROXABAN 10 MG TAB PO SCH (08:23)
[2018-05-22] MEDS: GABAPENTIN 300 MG CAP PO SCH ×3 (08:23→20:26)
[2018-05-22] MEDS: MAGNESIUM OXIDE 400 MG TAB PO SCH (08:24)
[2018-05-22] MEDS: CHOLECALCIFEROL 1,000 UNIT TAB PO SCH (08:24)
[2018-05-22] MEDS: ASPIRIN 81 MG PO SCH (08:24)
--- NOTE | 2018-05-22 08:32 | P.PN ---
Subjective Progress Note Date: 05/22/18 Principal diagnosis: Status post left total knee arthroplasty This is a 72 year-old female post left total knee arthroplasty. This is post- op day 1. The patient was evaluated at the bedside today. The patient denies nausea, vomiting, abdominal pain, shortness of breath, and chest pain this morning. She states her pain is not controlled at this time. She is currently receiving Ultram 50mg due to hallucinations with [place]. The patient has not been up with physical therapy but is ambulating to the bathroom. Objective - Vital Signs Vital signs: Vital Signs Temp 97.8 F 05/22/18 07:37 Pulse 70 05/22/18 07:37 Resp 19 05/22/18 07:37 BP 132/73 05/22/18 07:37 Pulse Ox 96 05/22/18 07:37 Intake & Output 05/21/18 05/22/18 05/22/18 18:59 06:59 18:59 Intake Total 801 2620 Output Total 450 Balance 351 2620 Weight 88.451 kg Intake: IV 801 Intake, IV Titration 1000 Amount Lactated Ringers 1,000 ml 1000 @ 100 mls/hr IV .Q10H MARIE Rx#:[id number] Oral 1620 Output: Urine 400 Estimated Blood Loss 50 Other: Voiding Method Toilet Toilet # Voids 1 3 - Exam The patient does not appear in acute distress. Alert and orientated x3. Dressing is clean dry and intact. Incision appears fine with no erythema or active drainage. Calf is soft and nontender. Good foot and ankle motion without difficulty. Sensation and circulatory status is intact. Assessment and Plan (1) Primary localized osteoarthritis of left knee Current Visit: Yes Status: Acute Code(s): M17.12 - UNILATERAL PRIMARY OSTEOARTHRITIS, LEFT KNEE SNOMED Code(s): 568107572 (2) Status post total left knee replacement Current Visit: Yes Status: Acute Code(s): Z96.652 - PRESENCE OF LEFT ARTIFICIAL KNEE JOINT SNOMED Code(s): 7417489107528 Plan: 1. Continue pain control, increase Ultram to 50-100mg 2. Anticoagulation with Xarelto for 5 days then ASA 3. Start CPM, physical therapy and ambulation today 4. Anticipate discharge home with homecare tomorrow
[2018-05-22] MEDS ORDERED: traMADol 50 MG TAB PO PRN (08:33)
[2018-05-22] MEDS ORDERED: GLUCOSAMINE CHONDR MSM PO SCH (09:00)
[2018-05-22 10:53] LABS: Basophils % (A) 0 %; Eosinophils % (A) 1 %; HCT 32.9 % (34.0-46.0); Hypochromasia Slight; Lymphocytes # (A) 0.9 k/uL (1.0-4.8); Lymphocytes % (A) 13 %; MCH 26.6 pg (25.0-35.0); MCHC 30.3 g/dL (31.0-37.0); MCV 87.8 fL (80.0-100.0); Mean Platelet Volume 6.8; Monocytes # (A) 0.6 k/uL (0-1.0); Monocytes % (A) 9 %; Neutrophils # (A) 5.4 k/uL (1.3-7.7); Neutrophils % (A) 76 %; Platelet Count 260 k/uL (150-450); RBC 3.75 m/uL (3.80-5.40); RDW 13.2 % (11.5-15.5)
[2018-05-22] MEDS: MULTIVITAMINS, THERA 1 EACH TAB PO SCH (11:53)
[2018-05-22 15:03] VITALS: RESP 16
[2018-05-22] MEDS: PRAVASTATIN SODIUM 40 MG TAB PO SCH (20:26)
[2018-05-22] MEDS: SENNOSIDES-DOCUSATE SODIUM 1 EACH TAB PO SCH (20:26)
[2018-05-22] MEDS: LOSARTAN 50 MG TAB PO SCH (20:26)
[2018-05-23] MEDS: LACTATED RINGERS 1,000 ML IV SCH ×2 (01:14→14:14)
--- NOTE | 2018-05-23 06:54 | PN ---
PROGRESS NOTE DATE OF SERVICE: May 22, 2018. PRESENTING COMPLAINT: Left knee arthroplasty. INTERVAL HISTORY: Patient is status post left knee arthroplasty. Pain is better controlled today. No nausea, vomiting, did tolerate a diet. Did also work with therapy. REVIEW OF SYSTEMS: Done for constitutional, cardiovascular, GI, pulmonary; relevant findings as above. MEDICATIONS: Current medications reviewed. PHYSICAL EXAMINATION: VITAL SIGNS: Temperature 98, pulse 79, respirations 16, blood pressure 149/73, pulse ox 95% on room air. GENERAL APPEARANCE: Sitting up comfortable. EYES: Pupils equal, conjunctivae normal. NECK: JVD not raised. Mass not palpable. RESPIRATORY: Effort, lungs are clear. CARDIOVASCULAR: 1st and 2nd sounds normal. No edema. ABDOMEN: Soft, nontender. Liver and spleen not palpable. PSYCHIATRY: Alert and oriented x3. Mood and affect normal. INVESTIGATIONS: White count 7. Hemoglobin 10. ASSESSMENT: 1. Left total knee arthroplasty. 2. Gastroesophageal reflux disease. 3. Essential hypertension. 4. Hyperlipidemia. 5. Primary osteoarthritis of multiple joints. 6. Chronic urinary stress incontinence. 7. Obesity; BMI 38.1. PLAN: Patient doing well. Pain is doing better. Continue current medication and treatment plan. MMODL / IJN: [id number] /
--- NOTE | 2018-05-23 08:15 | CONS ---
CONSULTATION ADDENDUM: CONSULTATION: My consultation dictated on May 21, 2018 at 10:41 pm, date transcribed on May 21, 2018 at 11:21 pm: DATE OF CONSULTATION: May 21, 2018. MMODL / IJN: [id number] /
[2018-05-23] MEDS: GABAPENTIN 300 MG CAP PO SCH (09:48)
[2018-05-23] MEDS: ASPIRIN 81 MG PO SCH (09:48)
[2018-05-23] MEDS: FAMOTIDINE 20 MG TAB PO SCH (09:49)
[2018-05-23] MEDS: MELOXICAM 7.5 MG TAB PO SCH (09:49)
[2018-05-23] MEDS: CHOLECALCIFEROL 1,000 UNIT TAB PO SCH (09:50)
[2018-05-23] MEDS: MAGNESIUM OXIDE 400 MG TAB PO SCH (09:50)
[2018-05-23] MEDS: RIVAROXABAN 10 MG TAB PO SCH (09:50)
[2018-05-23 09:55] VITALS: BP 130/76; PULSE 85; TEMP 98.7
--- NOTE | 2018-05-23 10:19 | P.DS ---
Providers Date of admission: 05/21/18 06:07 Expected date of discharge: 05/23/18 Attending physician: Sean Cintron Consults: 05/21/18 12:50 Consult Physician Routine Consulting Provider: Howard Jones Consult Reason/Comments: medical management Do you want consulting provider notified?: Yes Primary care physician: Yovani Leyva - Discharge Diagnosis(es) (1) Primary localized osteoarthritis of left knee Current Visit: Yes Status: Acute (2) Status post total left knee replacement Current Visit: Yes Status: Acute (3) Degenerative arthritis Current Visit: No Status: Acute Hospital Course: This is a 72-year-old female who was last seen with complaint of continued left knee pain. The patient has a known history of degenerative arthritis of the left knee and presents to discuss surgical options. After discussion and consideration the patient elects to proceed with total left knee arthroplasty. The patient is seen preoperatively by her primary care physician and cleared for surgery. The patient is admitted to [facility] for total left knee arthroplasty. The procedures performed without complication or sequelae. He is doing well postoperatively. Vital signs are stable at discharge. Labs are stable at discharge. the patient is ambulating well with walker with minimal assistance. The patient is discharged to home on postop day #2 pending medical clearance. Please see orders and refer to the med rec for accurate list of medications. Patient Condition at Discharge: Good Plan - Discharge Summary Discharge Rx Participant: Yes New Discharge Prescriptions: New Aspirin [Adult Low Dose Aspirin EC] 81 mg PO DAILY #1 tablet. Rivaroxaban [Xarelto] 10 mg PO DAILY #5 tab Sennosides-Docusate Sodium [Senokot-S] 1 tab PO BID #60 tablet traMADol HCL [Ultram] 50 mg PO Q6HR PRN #50 tab PRN Reason: Pain No Action Pravastatin Sodium [Pravachol] 40 mg PO HS Glucosamine-Chondr 500-400Mg 1 tab PO DAILY Gabapentin [Neurontin] 300 mg PO TID Ranitidine HCl [Zantac] 150 mg PO BID Cholecalciferol [Vitamin D3] 1,000 unit PO DAILY #0 Multivitamins, Thera [Multivitamin (formulary)] 1 tab PO DAILY Aspirin 81 mg PO DAILY #1 chewable Nitroglycerin Sl Tabs [Nitrostat] 0.4 mg SUBLINGUAL Q5M PRN #25 tab PRN Reason: Chest Pain Losartan Potassium 50 mg PO HS Magnesium 400 mg PO DAILY Discharge Medication List Glucosamine-Chondr 500-400Mg 1 tab PO DAILY 07/03/14 [History] Pravastatin Sodium [Pravachol] 40 mg PO HS 07/03/14 [History] Cholecalciferol [Vitamin D3] 1,000 unit PO DAILY #0 02/07/18 [History] Gabapentin [Neurontin] 300 mg PO TID 02/07/18 [History] Multivitamins, Thera [Multivitamin (formulary)] 1 tab PO DAILY 02/07/18 [History ] Ranitidine HCl [Zantac] 150 mg PO BID 02/07/18 [History] Aspirin 81 mg PO DAILY #1 chewable 02/08/18 [Rx] Nitroglycerin Sl Tabs [Nitrostat] 0.4 mg SUBLINGUAL Q5M PRN #25 tab 02/08/18 [Rx ] Losartan Potassium 50 mg PO HS 05/16/18 [History] Magnesium 400 mg PO DAILY 05/16/18 [History] Aspirin [Adult Low Dose Aspirin EC] 81 mg PO DAILY #1 tablet. 05/21/18 [Rx] Rivaroxaban [Xarelto] 10 mg PO DAILY #5 tab 05/21/18 [Rx] Sennosides-Docusate Sodium [Senokot-S] 1 tab PO BID #60 tablet 05/21/18 [Rx] traMADol HCL [Ultram] 50 mg PO Q6HR PRN #50 tab 05/23/18 [Rx] Follow up Appointment(s)/Referral(s): April Pate, PAC [PHYSICIAN DEVELOPMENT PLANNER] - 2 Weeks [facility],Equipment [NON-STAFF] - As Needed [facility], [NON-STAFF] - As Needed Ambulatory/Diagnostic Orders: Continuous Passive Motion (CPM) Machine [DME.AMB1] Time Frame: 3 Weeks, Facility : [facility], Location: Case Management Activity/Diet/Wound Care/Special Instructions: May bear wt as tolerated with walker. May shower if no drainage from incision. CPM 5-6h daily. Call [facility] once home to arrange delivery of CPM - [phone] Discharge Disposition: HOME WITH HOME HEALTH SERVICES
[2018-05-23] MEDS: traMADol 50 MG TAB PO PRN (11:23)
[2018-05-23] MEDS: MULTIVITAMINS, THERA 1 EACH TAB PO SCH (14:13)
--- NOTE | 2018-05-24 06:55 | PN ---
PROGRESS NOTE DATE OF SERVICE: 05/23/2018 PRESENT COMPLAINT: Left knee arthroplasty. INTERVAL HISTORY: Patient is status post left knee surgery. Pain is overall doing much better. Appetite is slowly getting better. No nausea, vomiting. No fever. Keen to go home. REVIEW OF SYSTEMS: Done for constitutional, cardiovascular, GI, pulmonary; relevant findings as above. CURRENT MEDICATIONS: Reviewed. PHYSICAL EXAMINATION: Temperature 98.7 pulse 65, respiration 16, blood pressure 130/76, pulse ox 94% on room air. GENERAL APPEARANCE: Sitting on the edge of bed, comfortable. EYES: Pupils equal. Conjunctivae normal. NECK: JVD not raised. Mass not palpable. Respiratory effort normal. LUNGS: Clear. CARDIOVASCULAR: First and second sounds. No edema. ABDOMEN: Soft, nontender. Liver and spleen not palpable. PSYCHIATRY: Alert and oriented x3. Mood and affect normal INVESTIGATIONS: No blood work from today. ASSESSMENT: 1. Left total knee arthroplasty. 2. Gastroesophageal reflux disease. 3. Essential hypertension. 4. Hyperlipidemia. 5. Primary osteoarthritis multiple joints. 6. Chronic urinary stress incontinence. 7. Obesity; BMI 38.1. PLAN: Patient doing much better. If discharged should follow up with the family doctor. MMODL / IJN: [id number] /
== END 2018-05-23 15:51 | disposition home health service (06) | DRG 470 ==
LOC: 2ORMAIN 06:07 → 4SSUR 10:25
PROVIDERS: ADMIT Orthopaedic Surgery; ATTEND Orthopaedic Surgery
PROC: 0SRD0J9 Replacement of Left Knee Joint with Synthetic Substitute, Cemented, Open Approach (ICD-10-PCS; principal; 2018-05-21 08:45)
DX: M17.12 Unilateral primary osteoarthritis, left knee (principal); M21.169 Varus deformity, not elsewhere classified, unspecified knee; E66.9 Obesity, unspecified; Z68.38 Body mass index [BMI] 38.0-38.9, adult; N39.3 Stress incontinence (female) (male); E78.5 Hyperlipidemia, unspecified; I10 Essential (primary) hypertension; K21.9 Gastro-esophageal reflux disease without esophagitis; Z79.01 Long term (current) use of anticoagulants; Z79.82 Long term (current) use of aspirin; Z79.899 Other long term (current) drug therapy; Z82.49 Family history of ischemic heart disease and other diseases of the circulatory system; Z96.641 Presence of right artificial hip joint; Z98.42 Cataract extraction status, left eye; Z98.41 Cataract extraction status, right eye; Z96.1 Presence of intraocular lens; Z88.2 Allergy status to sulfonamides; Z91.041 Radiographic dye allergy status
CPT/HCPCS: 85025; 88300

== ENCOUNTER 2019-01-20 04:07 | Emergency (ER) | payer MEDICARE ==
[2019-01-20 04:17] VITALS: RESP 18
--- NOTE | 2019-01-20 04:34 | ED ---
General Adult HPI - General Chief complaint: Extremity Injury, Upper Stated complaint: Hip Pain Time Seen by Provider: 01/20/19 04:11 Source: patient, EMS Mode of arrival: EMS Limitations: no limitations - History of Present Illness Initial comments: Demian is a pleasant 73-year-old female who presents the emergency department today via EMS for evaluation of right-sided hip pain radiating down her right leg. Patient reports that in 2014 she had a right hip replacement, since that time she has experienced a burning and tightness type pain intermittently. Patient describes the pain as feeling like a muscle tightness that causes a burning that radiates from her right buttock down her right leg. She reports that this pain acutely became worse last night and has kept her from sleeping. This prompted her contacted EMS for transport to the hospital. Patient received morphine in route to the hospital and states it didn't help, patient states she typically just takes Tylenol for her pain at home. Denies any trauma injury slips falls or twisting of the leg. She denies any back pain. She denies any change in bowel or bladder habits. - Related Data Home Medications Medication Instructions Recorded Confirmed Glucosamine-Chondr 500-400Mg 1 tab PO DAILY 07/03/14 05/21/18 Pravastatin Sodium [Pravachol] 40 mg PO HS 07/03/14 05/21/18 Cholecalciferol [Vitamin D3 (25 1,000 unit PO DAILY #0 02/07/18 05/21/18 Mcg = 1000 Iu)] Gabapentin [Neurontin] 300 mg PO TID 02/07/18 05/21/18 Multivitamins, Thera [Multivitamin 1 tab PO DAILY 02/07/18 05/21/18 (formulary)] Ranitidine HCl [Zantac] 150 mg PO BID 02/07/18 05/21/18 Losartan Potassium 50 mg PO HS 05/16/18 05/21/18 Magnesium 400 mg PO DAILY 05/16/18 05/21/18 Previous Rx's Medication Instructions Recorded Nitroglycerin Sl Tabs [Nitrostat] 0.4 mg SUBLINGUAL Q5M PRN #25 tab 02/08/18 Aspirin [Adult Low Dose Aspirin EC] 81 mg PO DAILY #1 tablet. 05/21/18 Sennosides-Docusate Sodium 1 tab PO BID #60 tablet 12/17/18 [Senokot-S] Aspirin 325 mg PO BID #14 tab 05/23/18 traMADol HCL [Ultram] 50 mg PO Q6HR PRN #50 tab 05/23/18 Lidocaine 5% Patch [Lidoderm] 1 patch TOPICAL DAILY #30 patch 01/20/19 Allergies Allergy/AdvReac Type Severity Reaction Status Date / Time Iodinated Contrast- Oral and Allergy Anaphylaxis Verified 01/20/19 04:17 IV Dye [Iodinated Contrast Media - IV Dye] Sulfa (Sulfonamide Allergy Swelling Verified 01/20/19 04:17 Antibiotics) sulfamethoxazole Allergy Swelling Verified 01/20/19 04:17 [From Bactrim] trimethoprim [From Bactrim] Allergy Swelling Verified 01/20/19 04:17 acetaminophen [From Bentley] AdvReac Hallucinati Verified 01/20/19 04:17 ons hydrocodone [From Bentley] AdvReac Hallucinati Verified 01/20/19 04:17 ons prednisone AdvReac Itching Verified 01/20/19 04:17 Review of Systems ROS Statement: Those systems with pertinent positive or pertinent negative responses have been documented in the HPI. ROS Other: All systems not noted in ROS Statement are negative. Past Medical History Past Medical History: GERD/Reflux, Hyperlipidemia, Hypertension, Osteoarthritis (OA) Additional Past Medical History / Comment(s): 07/07/14 Pt admitted to floor s/p total R hip. Other HX: Urinary stress Incontinence, osteoporosis History of Any Multi-Drug Resistant Organisms: None Reported Past Surgical History: Appendectomy, Section, Joint Replacement, Orthopedic Surgery, Tonsillectomy Additional Past Surgical History / Comment(s): 07/07/14 Total R hip arthroplasty. Bilateral cataracts, carpal tunnel release bilaterally Past Anesthesia/Blood Transfusion Reactions: No Reported Reaction, Postoperative Nausea & Vomiting (PONV) Past Psychological History: No Psychological Hx Reported Smoking Status: Never smoker Past Alcohol Use History: None Reported Past Drug Use History: None Reported - Past Family History Father Additional Family Medical History / Comment(s): took fluid off of lung Mother Family Medical History: Hypertension, Osteoarthritis (OA) General Exam - General Exam Comments Initial Comments: Physical Exam GENERAL: Patient is well-developed and well-nourished. Patient is nontoxic and well- hydrated and is in no distress. HENT: Normocephalic, Atraumatic. EYES: PERRL, EOMI PULMONARY: Unlabored respirations. No audible rales rhonchi or wheezing was noted. CARDIOVASCULAR: There is a regular rate and rhythm without any murmurs gallops or rubs. ABDOMEN: Soft and nontender with normal bowel sounds. SKIN: Skin is clear with no lesions or rashes and otherwise unremarkable. : Deferred NEUROLOGIC: Patient is alert and oriented x3. Moving all extremities spontaneously MUSCULOSKELETAL: Normal extremities with adequate strength and full range of motion. No lower extremity swelling or edema. No calf tenderness. Some tenderness to palpation in the buttocks, with pain rating down the right leg PSYCHIATRIC: Normal psychiatric evaluation. Limitations: no limitations Course Vital Signs 01/20/19 01/20/19 04:11 06:51 Temperature 98.3 F 98.6 F Pulse Rate 76 67 Respiratory 18 18 Rate Blood Pressure 128/80 123/72 O2 Sat by Pulse 97 97 Oximetry Medical Decision Making - Medical Decision Making The patient was seen and evaluated, history is obtained from the patient Patient seems to be suffering from sciatica. This seems to be exacerbated today. His been unable to sleep she did receive morphine in route to the hospital syncopal history of hip replacement obtained which resulted as normal. Patient will be treated with anti-inflammatories and topical Lidoderm patch. Patient was given steroids, patient does have a listed ALLERGY steroids however has tolerated them in the past and states that she is steroid injections for her musculoskeletal pain discharge, supportive care Disposition Clinical Impression: Sciatic leg pain Disposition: HOME SELF-CARE Condition: Stable Instructions (If sedation given, give patient instructions): Sciatica (ED) Prescriptions: Lidocaine 5% Patch [Lidoderm] 1 patch TOPICAL DAILY #30 patch Is patient prescribed a controlled substance at d/c from ED?: No Referrals: Yovani Leyva MD [Primary Care Provider] - 1-2 days
--- NOTE | 2019-01-20 04:54 | XR ---
EXAM: XR Right Hip With Pelvis When Performed, 1 View CLINICAL HISTORY: ITS.REASON XR Reason: Pain TECHNIQUE: Frontal view of the right hip, with pelvis when performed. COMPARISON: No relevant prior studies available. FINDINGS: Bones/joints: Total right hip arthroplasty in anatomic alignment No acute fracture. Soft tissues: Unremarkable. IMPRESSION: No acute findings.
[2019-01-20] MEDS ORDERED: KETOROLAC 30 MG/ML 1 ML VIAL IVP ONE (05:42)
[2019-01-20] MEDS ORDERED: methylPREDNISolone SOD SUCCI 125 MG/2 ML VIAL IV STA (06:24)
[2019-01-20 06:56] VITALS: BP 123/72; PULSE 67; TEMP 98.6
[2019-01-20] MEDS ORDERED: LIDOCAINE 5% PATCH TOPICAL SCH (09:00)
== END 2019-01-20 06:55 | disposition home or self-care (01) ==
LOC: EC 04:07
DX: M54.31 Sciatica, right side (principal); K21.9 Gastro-esophageal reflux disease without esophagitis; E78.5 Hyperlipidemia, unspecified; I10 Essential (primary) hypertension; M19.90 Unspecified osteoarthritis, unspecified site; Z96.641 Presence of right artificial hip joint; Z79.899 Other long term (current) drug therapy; Z91.041 Radiographic dye allergy status; Z88.2 Allergy status to sulfonamides; Z88.6 Allergy status to analgesic agent; Z88.5 Allergy status to narcotic agent; Z88.8 Allergy status to other drugs, medicaments and biological substances
CPT/HCPCS: 73502; 99284; 96374; 96375; J2930; J1885

== ENCOUNTER 2019-07-02 08:56 | Day surgery (SDC) | payer MEDICARE ==
[2019-06-19 08:48] VITALS: BMI 37.0
[~2019-07-02 08:56] MED LIST changes: +LIDOCAINE 1% (10MG/ML) FOR IV START INTRADERMA PRN; -MIDAZOLAM (PF) 2 MG/2 ML VIAL IV PRN; -ONDANSETRON 4 MG/2 ML VIAL IVP ONE; -TRANEXAMIC ACID 1,000 MG in SODIUM CHLORIDE 0.9% 50 ML IVPB ONE; -ceFAZolin IN SWFI 2 GM/20 ML SYRINGE IVP ONE; -fentaNYL (PF) 50 MCG/ML 2 ML AMP IV PRN
[2019-07-02 09:15] VITALS: TEMP 97.7
[2019-07-02] MEDS ORDERED: PROPOFOL 10 MG/ML 20 ML VIAL IV ONE (09:40)
[2019-07-02] MEDS ORDERED: LIDOCAINE 1% INJ 10MG/ML (20 ML MDV) ONE (09:40)
--- NOTE | 2019-07-02 10:26 | P.PCN ---
Date of Procedure: 07/02/19 Description of Procedure: BRIEF HISTORY: Patient is a 73-year-old pleasant female presenting for outpatient colonoscopy for evaluation of prior history of colon polyps. Last colonoscopy in 2016 significant for diverticulosis and polyp resection. Denies any change in bowel habits, blood per rectum or abdominal pain. PROCEDURE PERFORMED: Colonoscopy with polypectomy. PREOPERATIVE DIAGNOSIS: Personal history of colon polyps, last colonoscopy 2015. ESTIMATED BLOOD LOSS: Minimal. IV sedation per Anesthesia. PROCEDURE: After informed consent was obtained, the patient, was brought into the endoscopy unit. IV sedation was administered by Anesthesia under continuous monitoring. Digital rectal examination was normal. Initially the Olympus CF-190 flexible video colonoscope was then inserted in the rectum, gradually advanced into the cecum without any difficulty. Careful examination was performed as the scope was gradually being withdrawn. Ileocecal valve and the appendiceal orifice were visualized and appeared normal. Prep was excellent. Mucosa of the cecum, ascending colon, transverse colon, descending colon, sigmoid colon, and rectum appeared normal. Multiple small and large mouth diverticula noted in the sigmoid colon. A flat ileocecal valve polyp measuring 5 mm in size removed with cold snare polypectomy. Diminutive 2 mm polyps removed from the ascending colon and hepatic flexure with cold forcep polypectomy. Flat 4 mm transverse colon polyp removed with cold snare polypectomy. Retroflexion was performed in the rectum and no lesions were seen with low-grade internal hemorrhoids noted, and external nonthrombosed external hemorrhoids noted. The patient tolerated the procedure well. IMPRESSION: 2 diminutive polyps removed from the ascending colon and hepatic flexure with cold forcep polypectomy. 2 small polyps removed from the ileocecal valve and transverse colon with cold snare polypectomy. Moderate sigmoid diverticulosis. RECOMMENDATIONS: Findings of this examination were discussed with the patient and her son-in-law. Okay to resume diet. Okay to resume medications. Would pathology from polypectomies. Would recommend repeat colonoscopy in 3 years if patient is medically stable for history of colon polyps.
[2019-07-02 10:41] VITALS: BP 137/68; PULSE 70; RESP 67
== END 2019-07-02 10:55 | disposition home or self-care (01) ==
LOC: ORWHC2ENDO 08:56
PROVIDERS: ATTEND Internal Medicine
DX: Z12.11 Encounter for screening for malignant neoplasm of colon (principal); D12.2 Benign neoplasm of ascending colon; D12.3 Benign neoplasm of transverse colon; D12.0 Benign neoplasm of cecum; K57.30 Diverticulosis of large intestine without perforation or abscess without bleeding; K63.5 Polyp of colon; I10 Essential (primary) hypertension; E78.5 Hyperlipidemia, unspecified; K21.9 Gastro-esophageal reflux disease without esophagitis; Z88.8 Allergy status to other drugs, medicaments and biological substances; Z88.2 Allergy status to sulfonamides; Z88.5 Allergy status to narcotic agent; Z79.899 Other long term (current) drug therapy; Z90.49 Acquired absence of other specified parts of digestive tract; Z98.891 History of uterine scar from previous surgery; Z98.890 Other specified postprocedural states; Z86.010 Personal history of colon polyps; Z96.641 Presence of right artificial hip joint; Z98.41 Cataract extraction status, right eye; Z98.42 Cataract extraction status, left eye; Z91.041 Radiographic dye allergy status; Z91.048 Other nonmedicinal substance allergy status
CPT/HCPCS: 88305; 45380; 45385; J2001; J2704

== ENCOUNTER → 2019-07-03 | Outpatient (CLI) | payer MEDICARE ==
--- NOTE | 2019-07-11 12:22 | MM ---
Reason for exam: screening (asymptomatic). Last mammogram was performed 1 year and 6 months ago. History: Patient is postmenopausal. Family history of breast cancer in sister. Physical Findings: A clinical breast exam by your physician is recommended on an annual basis and results should be correlated with mammographic findings. MG 3D Screening Mammo W/Cad Bilateral CC and MLO view(s) were taken. Prior study comparison: January 12, 2018, mammogram, performed at [facility]. December 31, 2015, mammogram, performed at [facility]. The breast tissue is heterogeneously dense. This may lower the sensitivity of mammography. Benign appearing bilateral calcifications. No suspicious abnormality. No significant changes when compared with prior studies. ASSESSMENT: Benign, BI-RAD 2 RECOMMENDATION: Routine screening mammogram of both breasts in 1 year.
== END | disposition home or self-care (01) ==
LOC: RADMAMWWP 09:56
PROVIDERS: ATTEND Family Medicine
DX: Z12.31 Encounter for screening mammogram for malignant neoplasm of breast (principal)
CPT/HCPCS: 77063; 77067

== ENCOUNTER → 2020-10-20 | Outpatient (CLI) | payer MEDICARE ==
--- NOTE | 2020-10-22 14:08 | MM ---
Reason for exam: screening (asymptomatic). Last mammogram was performed 1 year and 4 months ago. History: Patient is postmenopausal. Family history of breast cancer in sister. Physical Findings: A clinical breast exam by your physician is recommended on an annual basis and results should be correlated with mammographic findings. MG 3D Screening Mammo W/Cad Bilateral CC and MLO view(s) were taken. Prior study comparison: July 03, 2019, bilateral MG 3d screening mammo w/cad. January 12, 2018, mammogram, performed at [facility]. The breast tissue is heterogeneously dense. This may lower the sensitivity of mammography. Benign vascular and oil cyst calcifications. No significant changes when compared with prior studies. ASSESSMENT: Negative, BI-RAD 1 RECOMMENDATION: Routine screening mammogram of both breasts in 1 year.
== END | disposition home or self-care (01) ==
LOC: RADMAMWWP 16:31
PROVIDERS: ATTEND Family Medicine
DX: Z12.31 Encounter for screening mammogram for malignant neoplasm of breast (principal); Z78.0 Asymptomatic menopausal state; Z80.3 Family history of malignant neoplasm of breast
CPT/HCPCS: 77063; 77067

== ENCOUNTER → 2020-11-20 | Outpatient (CLI) | payer MEDICARE ==
--- NOTE | 2020-11-21 13:35 | CT ---
EXAMINATION TYPE: CT abdomen pelvis wo con DATE OF EXAM: 11/20/2020 COMPARISON: None INDICATION: LUQ pain DLP: 851.1 mGycm, Automated exposure control for dose reduction was used. CONTRAST: 0 mL of Isovue 300. Study performed without Oral Contrast TECHNIQUE: Axial images were obtained from above the diaphragm to the pubic rami in the axial plane a t 5 mm thick sections. Reconstructed images are reviewed on the computer in the coronal plane. FINDINGS: Limited CT sections are obtained the lung bases. 0.4 cm nodule in the posterior lateral right lung b ase. Series 4 image 5. Second punctate nodule measuring 0.4 cm's above the left diaphragm. Series 4 i mage 11. Coronary artery calcification is noted. CT ABDOMEN: Liver: Normal Spleen: Normal Pancreas: Normal Adrenal glands: The adrenal glands are normal. Gallbladder: Normal Kidneys: No masses are evident. No hydronephrosis is present. No cysts are present. There is malro tation of the right kidney. Aorta: Vascular calcification is within the aorta. Inferior vena cava: Normal. CT PELVIS: Loops of bowel within the abdomen and pelvis are normal. The study is without oral contrast limit ing bowel evaluation Appendix: Not identified. No suspicious dilated tubular structure or inflammatory changes are evident . Urinary bladder: Normal. Genitourinary structures: Uterus is normal. Adnexal regions are clear. Osseous structures: No suspicious lytic or sclerotic lesions. Facet degenerative changes are present. A right hip prosthesis causes beam hardening artifact and limitation of the lower pelvis evaluation. IMPRESSIONS: 1. Malrotation right kidney. 2. Couple punctate nodules within the lung bases. CT chest recommended for additional evaluation.
== END | disposition home or self-care (01) ==
LOC: RADCTMAIN 12:22
PROVIDERS: ATTEND Family Medicine
DX: Q63.2 Ectopic kidney (principal); R91.8 Other nonspecific abnormal finding of lung field
CPT/HCPCS: 74176

== ENCOUNTER → 2020-12-11 | Outpatient (CLI) | payer MEDICARE | END | disposition home or self-care (01) ==

== ENCOUNTER → 2021-12-16 | Outpatient (CLI) | payer MEDICARE ==
--- NOTE | 2021-12-17 08:11 | CT ---
EXAMINATION TYPE: CT chest wo con CT DLP: 490.30 mGycm, Automated exposure control there there dose reduction was used. DATE OF EXAM: 12/16/2021 4:44 PM COMPARISON: CT chest 12/11/2020. CLINICAL INDICATION:Female, 76 years old with history of solitary pulmonary lung nodule TECHNIQUE: Multiple axial images were obtained through the chest without IV contrast. Lack of IV or o ral contrast limits evaluation of solid and hollow organ viscera. FINDINGS: LUNGS/ PLEURA: Scattered right upper, lower and middle lobe 4-6 mm pulmonary nodules dating back to 2 018. No evidence of focal consolidation, pneumothorax or pleural effusion. Discharge vertex. No AIRWAY: Patent and unremarkable.. HEART: Size within normal limits. Coronary artery atherosclerosis. Atherosclerosis of the arterial va sculature. MEDIASTINUM: No gross evidence of adenopathy. VASCULATURE: Atherosclerotic calcifications are present throughout the aorta and its branches. MUSCULOSKELETAL: Mild disc degeneration changes are present throughout the thoracolumbar spine. SOFT TISSUES/LYMPH NODES: Unremarkable. LOWER NECK: No significant findings. UPPER ABDOMEN: Diffuse low-attenuation to the liver parenchyma. Calcified granulomas within the live r. IMPRESSION: 1. Stable pulmonary nodules measuring less than or equal to 6 mm, which appear stable dating back to at least 2018 and considered benign. No new suspicious pulmonary nodules. 2. Hepatic steatosis.
--- NOTE | 2021-12-17 09:31 | MM ---
Reason for Exam: Screening (asymptomatic). Last mammogram was performed 1 year(s) and 2 month(s) ago. Patient History: Menarche at age 10. First Full-Term at age 18. Postmenopausal. Sister had breast cancer, age 45. Risk Values: Emily 5 year model risk: 3.6%. NCI Lifetime model risk: 6.7%. Prior Study Comparison: 01/12/2018 Screening Mammogram, [facility]. 07/03/2019 Bilateral Screening Mammogram, [facility]. 10/20/2020 Bilateral Screening Mammogram, [facility]. Tissue Density: The breast tissue is heterogeneously dense. This may lower the sensitivity of mammography. Findings: Analyzed By CAD. There is no suspicious group of microcalcifications or new suspicious mass in either breast. Overall Assessment: Negative, BI-RAD 1 Management: Screening Mammogram of both breasts in 1 year. A clinical breast exam by your physician is recommended on an annual basis and results should be correlated with mammographic findings. Electronically signed and approved by: Cameron Dye DO
== END | disposition home or self-care (01) ==
LOC: RADMAMWWP 15:48
PROVIDERS: ATTEND Family Medicine
DX: Z12.31 Encounter for screening mammogram for malignant neoplasm of breast (principal); K76.0 Fatty (change of) liver, not elsewhere classified; R91.8 Other nonspecific abnormal finding of lung field; Z78.0 Asymptomatic menopausal state; Z80.3 Family history of malignant neoplasm of breast
CPT/HCPCS: 71250; 77063; 77067

== ENCOUNTER 2022-10-23 16:57 | Emergency (ER) | payer MEDICARE ==
[2022-10-23 17:08] VITALS: BP 148/70; PULSE 75; RESP 20; TEMP 97.9
[2022-10-23] MEDS ORDERED: SODIUM CHLORIDE 0.9% 1,000 ML IV STA (17:14)
--- NOTE | 2022-10-23 17:17 | ED ---
Neuro HPI - General Chief Complaint: Neuro Symptoms/Deficit Stated Complaint: R side face drooping Time Seen by Provider: 10/23/22 17:14 Source: patient, RN notes reviewed, old records reviewed Mode of arrival: wheelchair Limitations: no limitations - History of Present Illness Is the patient presenting with stroke symptoms?: Yes -: hour(s) Initial Comments: This is a 77-year-old female to the emergency department for evaluation patient comes in with significant right-sided facial droop that she noticed progressing throughout the day first noticed when she woke up. Location: right face History of same: Yes Place: home Severity: moderate Quality: constant Improves With: none Worsens With: none Associated Symptoms: denies other symptoms Treatments Prior to Arrival: none - Related Data Home Medications: Home Medications Medication Instructions Recorded Confirmed Ranitidine HCl [Zantac] 150 mg PO BID PRN 02/07/18 07/02/19 Losartan Potassium 50 mg PO HS 05/16/18 07/02/19 Magnesium 400 mg PO DAILY 05/16/18 07/02/19 Acetaminophen Tab [Tylenol Tab] 650 mg PO Q6H PRN 06/19/19 07/02/19 Glucosamine/Chondr Brady A Sod [Osteo 2 each PO DAILY 06/19/19 07/02/19 Bi-Flex Caplet] Multivitamins, Thera [Multivitamin 1 tab PO DAILY 06/28/19 07/02/19 (formulary)] Previous Rx's Medication Instructions Recorded Acyclovir [Zovirax] 800 mg PO TID #30 tab 10/23/22 dexAMETHasone [Decadron] 6 mg PO BID #10 tablet 10/23/22 Allergies/Adverse Reactions: Allergies Allergy/AdvReac Type Severity Reaction Status Date / Time Iodinated Contrast Media Allergy Anaphylaxis Verified 10/23/22 17:07 [Iodinated Contrast Media - IV Dye] Sulfa (Sulfonamide Allergy Swelling Verified 10/23/22 17:07 Antibiotics) sulfamethoxazole Allergy Swelling Verified 10/23/22 17:07 [From Bactrim] trimethoprim [From Bactrim] Allergy Swelling Verified 10/23/22 17:07 hydrocodone [From [place]] AdvReac Hallucinati Verified 10/23/22 17:07 ons prednisone AdvReac Itching Verified 10/23/22 17:07 surgery tape AdvReac took off Uncoded 10/23/22 17:07 skin Review of Systems ROS Statement: Those systems with pertinent positive or pertinent negative responses have been documented in the HPI. ROS Other: All systems not noted in ROS Statement are negative. General Exam - General Exam Comments Initial Comments: NIH of 2-3 with facial paralysis Limitations: no limitations General appearance: alert, in no apparent distress, anxious Head exam: Present: atraumatic, normocephalic, normal inspection Eye exam: Present: normal appearance, PERRL, EOMI. Absent: scleral icterus, conjunctival injection, periorbital swelling ENT exam: Present: normal exam, mucous membranes moist Neck exam: Present: normal inspection. Absent: tenderness, meningismus, lymphadenopathy Respiratory exam: Present: normal lung sounds bilaterally. Absent: respiratory distress, wheezes, rales, rhonchi, stridor Cardiovascular Exam: Present: regular rate, normal rhythm, normal heart sounds. Absent: systolic murmur, diastolic murmur, rubs, gallop, clicks GI/Abdominal exam: Present: soft, normal bowel sounds. Absent: distended, tenderness, guarding, rebound, rigid Extremities exam: Present: normal inspection, full ROM, normal capillary refill. Absent: tenderness, pedal edema, joint swelling, calf tenderness Back exam: Present: normal inspection Neurological exam: Present: alert, oriented X3, CN II-XII intact Psychiatric exam: Present: normal affect, normal mood Skin exam: Present: warm, dry, intact, normal color. Absent: rash Stroke MDM - Lab Data Result diagrams: 10/23/22 17:25 10/23/22 17:25 Lab Results 10/23/22 10/23/22 10/23/22 Range/Units 17:25 17:25 17:25 WBC 4.3 (3.8-10.6) k/uL RBC 4.21 (3.80-5.40) m/uL Hgb 11.9 (11.4-16.0) gm/dL Hct 36.8 (34.0-46.0) % MCV 87.4 (80.0-100.0) fL MCH 28.4 (25.0-35.0) pg MCHC 32.5 (31.0-37.0) g/dL RDW 12.8 (11.5-15.5) % Plt Count 263 (150-450) k/uL MPV 7.2 Neutrophils % 47 % Lymphocytes % 37 % Monocytes % 8 % Eosinophils % 5 % Basophils % 1 % Neutrophils # 2.0 (1.3-7.7) k/uL Lymphocytes # 1.6 (1.0-4.8) k/uL Monocytes # 0.4 (0-1.0) k/uL Eosinophils # 0.2 (0-0.7) k/uL Basophils # 0.0 (0-0.2) k/uL PT 9.9 (9.0-12.0) sec INR 0.9 (<1.2) APTT 22.0 (22.0-30.0) sec Sodium 140 (137-145) mmol/L Potassium 3.9 (3.5-5.1) mmol/L Chloride 102 (98-107) mmol/L Carbon Dioxide 30 (22-30) mmol/L Anion Gap 8 mmol/L BUN 11 (7-17) mg/dL Creatinine 0.72 (0.52-1.04) mg/dL Est GFR (CKD-EPI)AfAm >90 (>60 ml/min/1.73 sqM) Est GFR (CKD-EPI)NonAf 81 (>60 ml/min/1.73 sqM) Glucose 157 H (74-99) mg/dL POC Glucose (mg/dL) (70-110) mg/dL POC Glu Cold Storage Superintendent ID Calcium 9.2 (8.4-10.2) mg/dL Total Bilirubin 0.4 (0.2-1.3) mg/dL AST 29 (14-36) U/L ALT 25 (4-34) U/L Alkaline Phosphatase 70 (38-126) U/L Creatine Kinase 53 (30-135) U/L Troponin I (0.000-0.034) ng/mL Total Protein 6.8 (6.3-8.2) g/dL Albumin 4.2 (3.5-5.0) g/dL 10/23/22 10/23/22 Range/Units 17:25 17:25 WBC (3.8-10.6) k/uL RBC (3.80-5.40) m/uL Hgb (11.4-16.0) gm/dL Hct (34.0-46.0) % MCV (80.0-100.0) fL MCH (25.0-35.0) pg MCHC (31.0-37.0) g/dL RDW (11.5-15.5) % Plt Count (150-450) k/uL MPV Neutrophils % % Lymphocytes % % Monocytes % % Eosinophils % % Basophils % % Neutrophils # (1.3-7.7) k/uL Lymphocytes # (1.0-4.8) k/uL Monocytes # (0-1.0) k/uL Eosinophils # (0-0.7) k/uL Basophils # (0-0.2) k/uL PT (9.0-12.0) sec INR (<1.2) APTT (22.0-30.0) sec Sodium (137-145) mmol/L Potassium (3.5-5.1) mmol/L Chloride (98-107) mmol/L Carbon Dioxide (22-30) mmol/L Anion Gap mmol/L BUN (7-17) mg/dL Creatinine (0.52-1.04) mg/dL Est GFR (CKD-EPI)AfAm (>60 ml/min/1.73 sqM) Est GFR (CKD-EPI)NonAf (>60 ml/min/1.73 sqM) Glucose (74-99) mg/dL POC Glucose (mg/dL) 164 H (70-110) mg/dL POC Glu Cold Storage Superintendent Xavier Srivastava Calcium (8.4-10.2) mg/dL Total Bilirubin (0.2-1.3) mg/dL AST (14-36) U/L ALT (4-34) U/L Alkaline Phosphatase (38-126) U/L Creatine Kinase (30-135) U/L Troponin I <0.012 (0.000-0.034) ng/mL Total Protein (6.3-8.2) g/dL Albumin (3.5-5.0) g/dL - NIH Stroke Scale 1a. Level of Consciousness: (0) alert 1b. LOC Questions: (0) answers correctly 1c. LOC Commands: (0) performs tasks correctly 2. Best Gaze: (0) normal 3. Visual: (0) no visual loss 4. Facial Palsy: (3) complete paralysis 5a. Motor Arm Left: (0) no drift 5b. Motor Arm Right: (0) no drift 6a. Motor Leg Left: (0) no drift 6b. Motor Leg Right: (0) no drift 7. Limb Ataxia: (0) absent 8. Sensory: (0) normal 9. Best Language: (0) no aphasia 10. Dysarthria: (0) normal 11. Extinction/Inattention: (0) no abnormality - Thrombolytic Inclusion/Exclusion Thrombolytic Exclusion Criteria: Onset of Symptoms Unknown - Radiology Data Radiology results: report reviewed (CT brain negative for acute disease), image reviewed Past Medical History Past Medical History: GERD/Reflux, Hyperlipidemia, Hypertension, Osteoarthritis (OA) Additional Past Medical History / Comment(s): hx colon polyps, hemorrhoids, Urinary stress Incontinence, osteoporosis, back pain w/ spinal stenosis., shingles 10/2022 History of Any Multi-Drug Resistant Organisms: None Reported Past Surgical History: Appendectomy, Section, Joint Replacement, Orthopedic Surgery, Tonsillectomy Additional Past Surgical History / Comment(s): 07/07/14 Total R hip arthroplasty. Bilateral cataracts, carpal tunnel release bilaterally, Total left knee Past Anesthesia/Blood Transfusion Reactions: Postoperative Nausea & Vomiting (P ONV) Additional Past Anesthesia/Blood Transfusion Reaction / Comment(s): only one time w/ N/V Past Psychological History: No Psychological Hx Reported Smoking Status: Never smoker Past Alcohol Use History: None Reported Past Drug Use History: None Reported - Past Family History Father Additional Family Medical History / Comment(s): took fluid off of lung Mother Family Medical History: Hypertension, Osteoarthritis (OA) Course Vital Signs 10/23/22 17:04 Temperature 97.9 F Pulse Rate 75 Respiratory 20 Rate Blood Pressure 148/70 O2 Sat by Pulse 98 Oximetry - Reevaluation(s) Reevaluation #1: 10/24/22 00:22 Medical records reviewed Stroke on patient arrival was paged Reevaluation #2: 10/24/22 00:22 Patient symptoms remain unchanged. The ER Reevaluation #3: 10/24/22 00:22 Patient informed results questions answered Reevaluation #4: 10/24/22 00:22 Was pt. sent in by a medical professional or institution? @ -no Did you speak to anyone other than the patient for history? @ -no Did you review nursing and triage notes? @ -agree Were old charts reviewed? @ -no Differential Diagnosis? @ -prior EKG interpreted by me (3pts min.)? @ -yes X-rays interpreted by me (1pt min.)? @ -no CT interpreted by me (1pt min.)? @ -no U/S interpreted by me (1pt. min.)? @ -no What testing was considered but not performed? (CT, X-rays, U/S, labs)? Why? @ -no What meds were considered but not given? Why? @ -no Did you discuss the management of the patient with other professionals? @ -no Did you reconcile home meds? @ -no Was smoking cessation discussed for >3mins.? @ -no Was critical care preformed (if so, how long)? @ -no Were there social determinants of health that impacted care today? How? (Homelessness, low income, unemployed, alcoholism, drug addiction, transportation, low edu. Level, literacy, decrease access to med. care, m[facility], rehab)? @ -no Was there de-escalation of care discussed even if they declined? (Discuss DNR or withdrawal of care, Hospice)? @ -no What co-morbidities impacted this encounter? (DM, HTN, Smoking, COPD, CAD, Cancer, CVA, Hep., AIDS, mental health diagnosis, sleep apnea, morbid obesity)? @ -none Was patient admitted / discharged? 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 @ -no Drug Therapy requiring intensive monitoring for toxicity (Heparin, Nitro, Insulin, Cardizem)? @ -no Were any procedures done? @ -no Diagnosis/symptom? 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 @ -no Uncomplicated (without systemic symptoms) or Complicated (systemic symptoms)? @ -uncomplicated Side effects of treatment? @ -no Exacerbation, Progression, or Severe Exacerbation] @ -no Poses a threat to life or bodily function? 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
[2022-10-23 17:26] LABS: Glucose,Whole Blood 164 mg/dL (70-110)
--- NOTE | 2022-10-23 17:42 | CT ---
EXAMINATION TYPE: CT brain wo con for TPA DATE OF EXAM: 10/23/2022 HISTORY: cva. Acute onset neuro deficit. CT DLP: 1135.4 mGycm. Automated Exposure Control for Dose Reduction was Utilized. TECHNIQUE: CT scan of the head is performed without contrast. COMPARISON: None. FINDINGS: There is no acute intracranial hemorrhage or midline shift identified. There is mild diff use ventricular and sulcal prominence. There is mild low-attenuation in the periventricular white mat ter consistent with chronic small vessel ischemic change. Old fracture deformity medial wall right or bit. Paranasal sinuses are grossly clear. Nasal septum is deviated to right of midline. The globes are intact bilaterally. IMPRESSION: No acute intracranial hemorrhage or midline shift.
[2022-10-23] MEDS ORDERED: DEXAMETHASONE SOD PHOSPHATE 10 MG/ML 1 ML VIAL IVP STA (17:47)
[2022-10-23] MEDS ORDERED: ACYCLOVIR 800 MG TAB PO STA (17:47)
[2022-10-23] MEDS ORDERED: KETOROLAC 15 MG/ML 1 ML VIAL IVP STA (17:47)
[2022-10-23 17:49] LABS: Basophils % (A) 1 %; Eosinophils # (A) 0.2 k/uL (0-0.7); Eosinophils % (A) 5 %; HCT 36.8 % (34.0-46.0); HGB 11.9 gm/dL (11.4-16.0); Lymphocytes # (A) 1.6 k/uL (1.0-4.8); Lymphocytes % (A) 37 %; MCH 28.4 pg (25.0-35.0); MCHC 32.5 g/dL (31.0-37.0); MCV 87.4 fL (80.0-100.0); Mean Platelet Volume 7.2; Monocytes # (A) 0.4 k/uL (0-1.0); Monocytes % (A) 8 %; Neutrophils % (A) 47 %; Platelet Count 263 k/uL (150-450); RBC 4.21 m/uL (3.80-5.40); RDW 12.8 % (11.5-15.5); WBC 4.3 k/uL (3.8-10.6)
[2022-10-23 17:52] LABS: ALT 25 U/L (4-34); AST 29 U/L (14-36); African American GFR (CKD) >90 (>60 ml/min/1.73 sqM); Albumin 4.2 g/dL (3.5-5.0); Alkaline Phosphatase 70 U/L (38-126); Anion Gap 8 mmol/L; Blood Urea Nitrogen 11 mg/dL (7-17); Calcium 9.2 mg/dL (8.4-10.2); Carbon Dioxide 30 mmol/L (22-30); Chloride 102 mmol/L (98-107); Creatine Kinase 53 U/L (30-135); Glucose 157 mg/dL (74-99); Non-African American GFR(CKD) 81 (>60 ml/min/1.73 sqM); Potassium 3.9 mmol/L (3.5-5.1); Sodium 140 mmol/L (137-145); Total Bilirubin 0.4 mg/dL (0.2-1.3); Total Protein 6.8 g/dL (6.3-8.2)
[2022-10-23 17:56] LABS: INR 0.9 (<1.2); Prothrombin Time 9.9 sec (9.0-12.0)
== END 2022-10-23 19:05 | disposition home or self-care (01) ==
LOC: EC 16:57
DX: B02.21 Postherpetic geniculate ganglionitis (principal); G51.0 Bell's palsy; I10 Essential (primary) hypertension; E78.5 Hyperlipidemia, unspecified; M19.90 Unspecified osteoarthritis, unspecified site; Z79.899 Other long term (current) drug therapy; Z88.1 Allergy status to other antibiotic agents; Z88.2 Allergy status to sulfonamides; Z88.5 Allergy status to narcotic agent; Z88.8 Allergy status to other drugs, medicaments and biological substances; Z91.041 Radiographic dye allergy status; Z91.09 Other allergy status, other than to drugs and biological substances
CPT/HCPCS: 99284 ×2; 96374; 96375; 36415; 80053; 82550; 84484; 85025; 85610; 85730; 70450; J1100; J1885

== ENCOUNTER → 2022-12-22 | Outpatient (CLI) | payer MEDICARE ==
--- NOTE | 2022-12-22 15:32 | CT ---
EXAMINATION TYPE: CT chest wo con CT DLP: 417.0 mGycm, Automated exposure control for dose reduction was used. DATE OF EXAM: 12/22/2022 3:20 PM COMPARISON: CT chest 12/16/2021, 12/11/2020. CLINICAL INDICATION:Female, 77 years old with history of R91.1 Z78.0 Z12.31; PHH, Lung nodule TECHNIQUE: Multiple axial images were obtained through the chest without IV contrast. Lack of IV or o ral contrast limits evaluation of solid and hollow organ viscera. . Coronal and sagittal reformats re viewed. FINDINGS: LUNGS/ PLEURA: No pleural effusion, pneumothorax, or focal consolidation. Few scattered pulmonary nod es measuring 5 mm or less. Examples include right lower lobe pleural-based 5 mm nodule (series 4, jasper ge 31), right lower lobe pleural-based 5 mm pulmonary nodule (series 4, image 36). Stable when measur ing with similar technique. No new or enlarging pulmonary nodules. AIRWAY: Patent and unremarkable.. HEART: Size within normal limits. No pericardial effusion. Mild coronary tear calcifications. MEDIASTINUM: No gross evidence of adenopathy. VASCULATURE: No aortic aneurysm. MUSCULOSKELETAL: Mild disc degeneration changes are present throughout the thoracolumbar spine. No ac anastasia osseous abnormality. SOFT TISSUES/LYMPH NODES: Unremarkable. LOWER NECK: No significant findings. UPPER ABDOMEN: Few scattered punctate calcified granulomas within the liver. IMPRESSION: Scattered stable pulmonary nodules measuring up to 5 mm. No new or enlarging pulmonary nodules.
--- NOTE | 2022-12-22 15:55 | BD ---
EXAMINATION TYPE: Axial Bone Density DATE OF EXAM: 12/22/2022 CLINICAL HISTORY: 77 years old Female. ICD-10 CODE: Z78.0 POST MENOPAUSAL WITHOUT HRT Height: 58.5" Weight: 188.2 FRAX RISK QUESTIONS: Alcohol (3 or more units per day): No Family History (Parent hip fracture): No Glucocorticoids (More than 3mos): No (Ex: prednisone, prednisolone, methylprednisolone, dexamethasone, and hydrocortisone). History of Fracture in Adulthood: No Secondary Osteoporosis: 1. Type 1 Diabetes: No 2. Hyperthyroidism: No 3. Menopause before 45: No 4. Malnutrition: No 5. Chronic liver disease: No Rheumatoid Arthritis: No Current Tobacco Use: No RISK FACTORS HISTORY OF: Hip Fracture (Right/Left): No Spine Fracture: No History of Wrist Fracture: No Surgery to Spine/Hip(right/left)/Wrist (right/left): Right hip When: Over 5 years ago Family History of Osteoporosis: No Active: No Diet low in dairy products/other sources of calcium: Yes Postmenopausal woman: Yes Lost more than 2 inches in height since high school: Yes Frequent falls: No Poor Health: No Hyperparathyroidism: No Adrenal Insufficiency: No MEDICATIONS: Prednisone or other steroids: No Thyroid Medications: No Osteoporosis Medications: No Additional Medications: Gabapentin, Cholesterol meds, fish oil, vitamin D, vitamin C, magnesium Additional History: Right hip replacement EXAM MEASUREMENTS: Bone mineral densitometry was performed using the [employer] System. Bone mineral density as measured about the Lumbar spine is: ----- L1-L4(G/cm2): 1.244 T Score Values are as follows: ----- L1: 0.2 ----- L2: 0.6 ----- L3: 0.7 ----- L4: 0.6 ----- L1-L4: 0.5 Z Score Values are as follows: ----- L1: 1.4 ----- L2: 1.7 ----- L3: 1.9 ----- L4: 1.7 ----- L1-L4: 1.7 Baseline @[facility] Bone mineral density about the L hip (g/cm2): 1.155 T Score values are as follows: -----L Neck: 0.4 -----L Total: 1.2 Z Score values are as follows: -----L Neck: 2.0 -----L Total: 2.6 Baseline @[facility] FRAX%s: The graph provided illustrates a 6.8% chance for a major osteoporotic fx and a 0.6% chance fo r the hips probability for fx in 10 years time. IMPRESSION: Normal (Values between +1 and -1 indicate normal bone mass). Consider repeating this study in 5 year s or sooner if there is some new clinical indication. NOTE: T-SCORE=SD OF THE YOUNG ADULT MEAN.
--- NOTE | 2022-12-23 07:21 | MM ---
Reason for Exam: Screening (asymptomatic). Last screening mammogram was performed 12 month(s) ago. Patient History: Menarche at age 10. First Full-Term at age 18. Postmenopausal. Sister had breast cancer, age 45. Risk Values: Emily 5 year model risk: 3.5%. NCI Lifetime model risk: 6.2%. Prior Study Comparison: 07/03/2019 Bilateral Screening Mammogram, [facility]. 10/20/2020 Bilateral Screening Mammogram, [facility]. 12/16/2021 Bilateral MG 3D screening mammo w/cad, [facility]. Tissue Density: The breast tissue is heterogeneously dense. This may lower the sensitivity of mammography. Findings: Analyzed By CAD. There is no suspicious group of microcalcifications or new suspicious mass in either breast. Overall Assessment: Benign, BI-RAD 2 Management: Screening Mammogram of both breasts in 1 year. . Patient should continue monthly self-breast exams. A clinical breast exam by your physician is recommended on an annual basis. This exam should not preclude additional follow-up of suspicious palpable abnormalities. Note on Emily scores and lifetime risk: 1. A Emily score greater than 3% is considered moderate risk. If this is the case, consider specialist referral to assess eligibility for a risk reducing agent. 2. If overall lifetime risk for the development of breast cancer is 20% or higher, the patient may qualify for future screening with alternating mammogram and breast MRI. Electronically signed and approved by: Joaquin Kendall M.D. Radiologis
== END | disposition home or self-care (01) ==
LOC: RADCTMAIN 14:27
PROVIDERS: ATTEND Family Medicine
DX: Z12.31 Encounter for screening mammogram for malignant neoplasm of breast (principal); R91.8 Other nonspecific abnormal finding of lung field; Z78.0 Asymptomatic menopausal state
CPT/HCPCS: 71250; 77063; 77067; 77080

== ENCOUNTER → 2024-01-09 | Outpatient (CLI) | payer MEDICARE, OTHER ==
--- NOTE | 2024-02-01 08:34 | MM ---
Reason for Exam: Screening (asymptomatic). Last mammogram was performed 1 year(s) and 1 month(s) ago. Patient History: Menarche at age 10. First Full-Term at age 18. Postmenopausal. Sister had breast cancer, age 45. Risk Values: Emily 5 year model risk: 3.4%. NCI Lifetime model risk: 5.7%. Prior Study Comparison: 12/31/2015 Screening Mammogram, [facility]. 01/12/2018 Screening Mammogram, [facility]. 07/03/2019 Bilateral Screening Mammogram, [facility]. 10/20/2020 Bilateral Screening Mammogram, [facility] 12/16/2021 Bilateral MG 3D screening mammo w/cad, [facility]. 12/22/2022 Bilateral MG 3D screening mammo w/cad, [facility]. Tissue Density: The breasts are heterogeneously dense, which may obscure small masses. Findings: Analyzed By CAD. Right breast: There is no suspicious group of microcalcifications or new suspicious mass. Benign-appearing calcifications right breast. Left breast: There is no suspicious group of microcalcifications or new suspicious mass. Benign-appearing calcifications left breast. Overall Assessment: Benign, BI-RAD 2 Management: Screening Mammogram of both breasts in [address] [facility] will attempt to contact patient to return for supplemental views and ultrasound if indicated. Patient should continue monthly self-breast exams. A clinical breast exam by your physician is recommended on an annual basis. This exam should not preclude additional follow-up of suspicious palpable abnormalities. Note on Emily scores and lifetime risk: 1. A Emily score greater than 3% is considered moderate risk. If this is the case, consider specialist referral to assess eligibility for a risk reducing agent. 2. If overall lifetime risk for the development of breast cancer is 20% or higher, the patient may qualify for future screening with alternating mammogram and breast MRI. Electronically signed and approved by: Cameron Dye DO
== END | disposition home or self-care (01) ==
LOC: RADMAMWWP 10:00
PROVIDERS: ATTEND Family Medicine
DX: Z12.31 Encounter for screening mammogram for malignant neoplasm of breast (principal); Z78.0 Asymptomatic menopausal state; Z80.3 Family history of malignant neoplasm of breast
CPT/HCPCS: 77063; 77067

== ENCOUNTER → 2024-07-26 | Day surgery (SDC) | payer MEDICARE, BC, OTHER ==
[2024-07-24 12:52] VITALS: BMI 36.3
[~2024-07-26] MED LIST changes: -LACTATED RINGERS 1,000 ML IV SCH; -LIDOCAINE 1% (10MG/ML) FOR IV START INTRADERMA PRN; +PROPOFOL 10 MG/ML 20 ML VIAL IV ONE
[2024-07-26 14:01] VITALS: RESP 16; TEMP 97.3
[2024-07-26] MEDS: IV FLUID CONTINUATION 1,000 ML IV ONE (14:04)
[2024-07-26] MEDS: LACTATED RINGERS 1,000 ML IV SCH (14:04)
[2024-07-26 15:12] VITALS: BP 115/68; PULSE 69
--- NOTE | 2024-07-26 15:17 | P.PCN ---
Date of Procedure: 07/26/24 Procedure(s) Performed: BRIEF HISTORY: Patient is a 78-year-old pleasant white female scheduled for an elective colonoscopy as a part of a prior history of colon polyps. Last colonoscopy was 5 years ago and was noted to have colon polyp with tubular adenoma. PROCEDURE PERFORMED: Colonoscopy snare polypectomy. PREOPERATIVE DIAGNOSIS: Screening for history of colon polyps/tubular adenoma. IV sedation per Anesthesia. PROCEDURE: After informed consent was obtained, the patient, was brought into the endoscopy unit. IV sedation was administered by Anesthesia under continuous monitoring. Digital rectal examination was normal. Initially the Olympus CF-160 flexible video colonoscope was then inserted in the rectum, gradually advanced into the cecum without any difficulty. Careful examination was performed as the scope was gradually being withdrawn. Ileocecal valve and the appendiceal orifice were visualized and appeared normal. Prep was excellent. Mucosa of the cecum, 2 cm broad-based polyp removed by snare polypectomy. In the ascending colon there was a 5 mm polyp removed by snare polypectomy. Rest of the ascending colon, transverse colon, descending colon, sigmoid colon, and rectum appeared normal. Scattered sigmoid diverticulosis. Retroflexion was performed in the rectum and small internal hemorrhoids were seen. The patient tolerated the procedure well. IMPRESSION: 2 cm broad-based cecal polyp status post snare polypectomy 5 mm ascending colon polyp status post snare polypectomy Scattered sigmoid diverticulosis Small internal hemorrhoids RECOMMENDATIONS: Findings of this examination were discussed with the patient as well as her family. She was advised to follow with the biopsy results. If the biopsy reveals adenoma she can have repeat colonoscopy in 3 years..
== END ==
LOC: ORWHC2ENDO 12:36
PROVIDERS: ATTEND Internal Medicine Gastroenterology
DX: D12.0 Benign neoplasm of cecum (principal); D12.2 Benign neoplasm of ascending colon; Z86.0101 Personal history of adenomatous and serrated colon polyps; K57.30 Diverticulosis of large intestine without perforation or abscess without bleeding; K64.8 Other hemorrhoids
CPT/HCPCS: 88305; 45385; J2704